=== PATIENT | female | born 1955 | race Caucasian/White ===

== ENCOUNTER → 2018-08-10 10:00 | Outpatient (CLI) | payer OTHER, SELFPAY | PROVIDERS: PCP Family Medicine | DX: Z23 Encounter for immunization (principal) | CPT/HCPCS: 90471; 90686 ==

== ENCOUNTER → 2018-12-19 18:59 | Outpatient (CLI) | payer OTHER, SELFPAY | PROVIDERS: PCP Family Medicine; Visit Provider Physician Assistant | DX: J02.9 Acute pharyngitis, unspecified (principal) | CPT/HCPCS: 87070 ==

== ENCOUNTER 2019-03-07 20:03 | Emergency (ER) | payer OTHER, SELFPAY ==
[2019-03-07] VITALS (11 sets, daily range): BP systolic 97–161; BP diastolic 46–90; PULSE 67–84; RESP 12–18; TEMP 36.8–37.1; O2SAT 96–100
--- NOTE | 2019-03-07 20:15 | DI.RAD.S_ITS ---
PROCEDURE: XR CHEST 1V INDICATIONS: chest tight TECHNIQUE: One view of the chest was acquired. COMPARISON: None. FINDINGS: Surgical changes and devices: None. Lungs and pleura: Lungs are clear. No pleural effusions or pneumothorax. Mediastinum: Mediastinal contours appear normal. Heart size is normal. Bones and chest wall: No suspicious bony lesions. Overlying soft tissues appear unremarkable. IMPRESSION: Normal for age, source of current chest tightness symptoms is not seen. Dictated by: Hua Wu M.D. on 03/07/2019 at 20:28 Approved by: Hua Wu M.D. on 03/07/2019 at 20:29
--- NOTE | 2019-03-07 20:17 | ED.ARRPALP ---
HPI - Arrhythmia/Palpitations <Shanice Og PA-C - Last Filed: 03/07/19 22:14> General Chief Complaint: Arrhythmia/Palpitations Stated Complaint: ABNORMAL EKG Time Seen by Provider: 03/07/19 20:12 Source: patient Mode of arrival: ambulatory Limitations: no limitations History of Present Illness HPI narrative: This 63-year-old female is sent to ED from the walk-in clinic today due to concern for EKG changes. She states that she has been sick for a week with ?flu? symptoms including generalized body aches. She states that she has had some chest congestion and mild cough and had some chills and sweats at home as well (no temperature is taken). She states that she also had nausea and vomiting with this for the 1st few days. She does not have any nausea or abdominal pain today. She states that she has also had palpitations twice during this last week that lasted for up to an hour, this felt like fast heart rate to her. She did not notice any irregular heartbeat. She states that she has also been more tired in general and short of breath with exertion, i.e. just watering her plants today notice this. She has not been short of breath at rest, no difficulty lying flat. She states that she has not noted any new pain or swelling in her extremities. she has not had any pain in her chest. She states she noticed some pain and soreness in her neck on the left side that she thinks is due to a swollen gland. That is more tender to the touch. She states that she went to the walk-in clinic to request a note to return to work and also to see if there was anything that could make her feel better since she still does not feel well. She denies any other new symptoms on systems review, states she has some ongoing lightheadedness that is unchanged. She states that she has chronic wheeze that is also unchanged, has never needed treatment or inhaler for this. She states she was previously treated for hypertension but lost weight and has not needed medications. She does have diabetes and neuropathy. No history of heart disease or blood clots Related Data Home Medications Medication Instructions Recorded Confirmed [CALCIUM/MAG/ZINC] PO QDAY #0 10/19/17 03/07/19 ascorbic acid (vitamin C) PO QDAY #0 10/19/17 03/07/19 cholecalciferol (vitamin D3) PO QDAY #0 10/19/17 03/07/19 [Vitamin D3] vitamin E [Aquasol E (d-alpha PO QDAY #0 10/19/17 03/07/19 tocopherol)] [probiotics] #0 12/11/17 03/07/19 biotin 5 mg capsule 5 mg PO DAILY 03/07/19 03/07/19 Previous Rx's Medication Instructions Recorded Glucose: Home Monitoring Kit kit NA QDAY #1 01/02/18 Test Strips - Freestyle str NA QDAY #90 01/02/18 Allergies Allergy/AdvReac Type Severity Reaction Status Date / Time Penicillins [PENICILLINS] Allergy Unknown Verified 03/07/19 20:11 Sulfa (Sulfonamide Allergy Unknown Verified 03/07/19 20:11 Antibiotics) [SULFA (SULFONAMIDE ANTIBIOTICS)] <Xenia Weems DO - Last Filed: 03/08/19 02:14> History of Present Illness HPI narrative: The patient is 63-year-old female with history of noncompliant diabetes and hypertension presenting from the walk-in clinic for EKG changes. She has had a increased shortness of breath with exertion worse over the last day. She has no chest pain or heart palpitations found. She has had flu like symptoms as for the last few days. She denies any orthopnea. She is supposed to be taking metformin for her diabetes but she states she has not been taking that or her blood pressure medication. Review of Systems <Shanice Og PA-C - Last Filed: 03/07/19 22:14> Review of Systems ROS Unobtainable: All systems reviewed & are unremarkable except as noted in HPI and below <Xenia Weems DO - Last Filed: 03/08/19 02:14> Review of Systems ROS Unobtainable: All systems reviewed & are unremarkable except as noted in HPI and below Constitutional Reports body ache(s), Denies chills, Denies fever(s), Denies lethargy and Denies weakness Eyes Denies change in vision, Denies eye discharge, Denies irritation and Denies loss of vision ENT Ears, Nose, Mouth, and Throat: Denies change in voice, Denies neck pain and Denies sore throat Cardiovascular Denies chest pain, Denies lightheadedness, Denies radiating jaw, neck or arm pain, Reports palpitations (twice this week), Reports dyspnea on exertion and Denies orthopnea Respiratory Reports as per HPI, Reports chest congestion, Reports cough and Reports dyspnea on exertion Gastrointestinal Gastrointestinal: Denies abdominal pain, Denies change in bowel habits, Denies diarrhea, Denies nausea and Denies vomiting Genitourinary Denies hematuria, Denies flank pain, Denies urinary incontinence and Denies urinary urgency Musculoskeletal Denies neck pain Integumentary/Breasts Denies pruritus, Denies erythema, Denies rash and Denies wounds Neurologic Denies loss of vision and Denies weakness Endocrine Reports palpitations (twice this week) PFSH <Shanice Og PA-C - Last Filed: 03/07/19 22:14> Medical History CTS (carpal tunnel syndrome) (Chronic 1997) Depression (Chronic 1977) Diabetes mellitus (Chronic 2009) HPV (human papilloma virus) infection (Chronic 2016) IBS (irritable bowel syndrome) (Chronic 1977) Acne (Resolved 1969) Chicken pox (Resolved 1961) Colon polyps (Resolved 2014) Foot pain (Resolved 1955) Fractures (Resolved 1973) Hemorrhoids (Resolved 1974) History of recurrent ear infection (Resolved 1967) Measles (Resolved 1962) Mumps (Resolved 1959) Recurrent sinusitis (Resolved 1959) Tinnitus (Resolved 1969) Surgical History Anesthesia (Resolved) Status post colonoscopy (Resolved) Family History (Updated 05/08/18 @ 17:40 by Denisse Mccall) Mother Cancer Family/Other Stomach cancer Family/Other Breast cancer Social History Smoking Status: Former smoker Family History (Updated 05/08/18 @ 17:40 by Denisse Mccall) Mother Cancer Family/Other Stomach cancer Family/Other Breast cancer Social History Smoking Status: Former smoker Comment: Quit tobacco approximately 1998 Exam <Shanice Og PA-C - Last Filed: 03/07/19 22:14> Narrative Exam Narrative: GENERAL APPEARANCE: Patient sitting comfortably, in no distress. HEENT: JYOTI, EOMI, normal oropharynx NECK/THYROID: Neck supple, no JVD. Few cervical nodes, 1 tender node on the left approximately 1 cm LUNGS: Clear to auscultation bilaterally. HEART: Regular rate and rhythm without murmur, normal S1, S2, no S3 or S4. ABDOMEN: Soft, NT, ND, + BS x 4 quadrants EXTREMITIES: No edema. No calf tenderness NEUROLOGIC: Alert and oriented, normal speech, gait and coordination. Initial Vital Signs Initial Vital Signs: Vital Signs Temperature 98.8 F 03/07/19 20:05 Pulse Rate 70 03/07/19 20:05 Respiratory Rate 12 03/07/19 20:05 Blood Pressure 161/90 H 03/07/19 20:05 Pulse Oximetry 100 03/07/19 20:05 <Xenia Weems DO - Last Filed: 03/08/19 02:14> Initial Vital Signs Initial Vital Signs: Vital Signs Temperature 98.8 F 03/07/19 20:05 Pulse Rate 70 03/07/19 20:05 Respiratory Rate 12 03/07/19 20:05 Blood Pressure 161/90 H 03/07/19 20:05 Pulse Oximetry 100 03/07/19 20:05 Course <Shanice Og PA-C - Last Filed: 03/07/19 22:14> Additional Information: The patient initially stated that she had not had any new symptoms today but had noted exertional dyspnea in light of her flu-like symptoms over the past sent from the walk-in clinic due to EKG changes. Her troponin was positive. She noted some brief left-sided mild chest discomfort that was relieved with a dose of nitroglycerin. She was given aspirin, started on heparin. She has not been hypoxic. Dr. Weems has seen and evaluated patient as well. Awaiting transfer to cardiac care facility (waiting for insurance contact to return call). 2 hour repeat troponin ordered. Dr. Weems will continue management and transfer Orders Ordered: ED Orders 03/07/19 20:15 XR chest 1V Stat EKG-12 Lead Stat 03/07/19 20:30 B Type Natriuretic Peptide Stat Complete Blood Count AUTO DIFF Stat Comprehensive Metabolic Panel Stat Influenza A and B by PCR Rapid Stat Lipase Stat Partial Thromboplastin Time Stat Troponin & CK Cardiac Panel Stat 03/07/19 22:25 Troponin I Stat 03/07/19 22:49 EKG-12 Lead Stat Discontinued Medications Aspirin (Aspirin Chew) 324 mg PO NOW ONE Stop: 03/07/19 20:16 Last Admin: 03/07/19 20:18 Dose: 324 mg Heparin Sodium (Porcine) (Heparin) 5,000 unit IV NOW ONE Stop: 03/07/19 21:35 Last Admin: 03/07/19 21:42 Dose: 5,000 unit Heparin Sodium/Dextrose (Heparin Drip) 25,000 unit in 500 mls @ 20 mls/hr IV CONT WEN; Protocol Last Titration: 03/08/19 00:34 Dose: 1,000 units/hr, 20 mls/hr Admin: 03/07/19 21:45 Dose: 1,000 units/hr, 20 mls/hr Nitroglycerin (Nitroglycerin) 50 mg in 250 mls @ 1.5 mls/hr IV TITRATE WEN; Protocol Last Titration: 03/08/19 00:35 Dose: 5 mcg/min, 1.5 mls/hr Admin: 03/07/19 23:21 Dose: 5 mcg/min, 1.5 mls/hr Nitroglycerin (Nitrostat) 0.4 mg SL NOW ONE Stop: 03/07/19 21:35 Last Admin: 03/07/19 21:39 Dose: 0.4 mg Vital Signs - 8 hr 03/07/19 20:05 03/07/19 21:11 03/07/19 21:25 Temperature 98.8 F Pulse Rate 70 74 73 Respiratory Rate 12 18 17 Blood Pressure 161/90 H Blood Pressure [Left Arm] 156/86 H 134/83 Pulse Oximetry 100 98 96 03/07/19 21:35 03/07/19 21:40 03/07/19 21:45 Temperature Pulse Rate 74 84 80 Respiratory Rate 12 18 16 Blood Pressure Blood Pressure [Left Arm] 134/83 138/79 125/84 Pulse Oximetry 97 96 97 03/07/19 22:06 03/07/19 22:24 03/07/19 22:49 Temperature Pulse Rate 67 71 69 Respiratory Rate 15 18 18 Blood Pressure Blood Pressure [Left Arm] 131/75 121/83 97/46 L Pulse Oximetry 97 98 98 03/07/19 22:53 03/07/19 23:42 03/08/19 00:35 Temperature 98.2 F 98 F Pulse Rate 76 72 77 Respiratory Rate 18 16 18 Blood Pressure 117/71 Blood Pressure [Left Arm] 134/72 131/76 Pulse Oximetry 98 96 98 <Xenia Weems DO - Last Filed: 03/08/19 02:14> Orders Ordered: ED Orders 03/07/19 20:15 XR chest 1V Stat EKG-12 Lead Stat 03/07/19 20:30 B Type Natriuretic Peptide Stat Complete Blood Count AUTO DIFF Stat Comprehensive Metabolic Panel Stat Influenza A and B by PCR Rapid Stat Lipase Stat Partial Thromboplastin Time Stat Troponin & CK Cardiac Panel Stat 03/07/19 22:25 Troponin I Stat 03/07/19 22:49 EKG-12 Lead Stat Discontinued Medications Aspirin (Aspirin Chew) 324 mg PO NOW ONE Stop: 03/07/19 20:16 Last Admin: 03/07/19 20:18 Dose: 324 mg Heparin Sodium (Porcine) (Heparin) 5,000 unit IV NOW ONE Stop: 03/07/19 21:35 Last Admin: 03/07/19 21:42 Dose: 5,000 unit Heparin Sodium/Dextrose (Heparin Drip) 25,000 unit in 500 mls @ 20 mls/hr IV CONT WEN; Protocol Last Titration: 03/08/19 00:34 Dose: 1,000 units/hr, 20 mls/hr Admin: 03/07/19 21:45 Dose: 1,000 units/hr, 20 mls/hr Nitroglycerin (Nitroglycerin) 50 mg in 250 mls @ 1.5 mls/hr IV TITRATE WEN; Protocol Last Titration: 03/08/19 00:35 Dose: 5 mcg/min, 1.5 mls/hr Admin: 03/07/19 23:21 Dose: 5 mcg/min, 1.5 mls/hr Nitroglycerin (Nitrostat) 0.4 mg SL NOW ONE Stop: 03/07/19 21:35 Last Admin: 03/07/19 21:39 Dose: 0.4 mg Vital Signs - 8 hr 03/07/19 20:05 03/07/19 21:11 03/07/19 21:25 Temperature 98.8 F Pulse Rate 70 74 73 Respiratory Rate 12 18 17 Blood Pressure 161/90 H Blood Pressure [Left Arm] 156/86 H 134/83 Pulse Oximetry 100 98 96 03/07/19 21:35 03/07/19 21:40 03/07/19 21:45 Temperature Pulse Rate 74 84 80 Respiratory Rate 12 18 16 Blood Pressure Blood Pressure [Left Arm] 134/83 138/79 125/84 Pulse Oximetry 97 96 97 03/07/19 22:06 03/07/19 22:24 03/07/19 22:49 Temperature Pulse Rate 67 71 69 Respiratory Rate 15 18 18 Blood Pressure Blood Pressure [Left Arm] 131/75 121/83 97/46 L Pulse Oximetry 97 98 98 03/07/19 22:53 03/07/19 23:42 03/08/19 00:35 Temperature 98.2 F 98 F Pulse Rate 76 72 77 Respiratory Rate 18 16 18 Blood Pressure 117/71 Blood Pressure [Left Arm] 134/72 131/76 Pulse Oximetry 98 96 98 MDM - Arrhythmia/Palpitations <Shanice Og PA-C - Last Filed: 03/07/19 22:14> Lab Data Attestation: I reviewed the patient's lab results. Result diagrams: 03/07/19 20:30 03/07/19 20:30 Lab Results 03/07/19 03/07/19 03/07/19 Range/Units 20:30 20:30 20:30 WBC 6.6 (4.5-11.0) X10^3/uL RBC 4.90 (4.0-5.2) X10^6/uL Hgb 15.7 (12.0-16.0) g/dL Hct 45.2 (36-46) % MCV 92.1 (80-100) fL MCH 31.9 (26-34) PG MCHC 34.7 (30-36) % RDW 13.1 (11.6-14.8) % Plt Count 293 (150-400) X10^3/uL Neut % (Auto) 60.0 (50-75) % Lymph % (Auto) 30.5 (25-40) % [place] % (Auto) 8.3 (3-14) % Eos % (Auto) 0.3 L (2-4) % Baso % (Auto) 0.9 (0-2) % Neut # (Auto) 4000 (9789-8730) /uL Lymph # (Auto) 2000 (5291-3053) /uL [place] # (Auto) 500 (0-900) /uL Eos # (Auto) 0 (0-450) /uL Baso # (Auto) 100 (0-100) /uL APTT (26.4-36.2) SECONDS Sodium 136 L (137-145) mmol/L Potassium 4.1 (3.4-5.1) mmol/L Chloride 96 L (98-107) mmol/L Carbon Dioxide 26 (22-32) mmol/L BUN 14 (7-17) mg/dL Creatinine 0.50 L (0.52-1.04) mg/dL Estimated GFR > 60.0 (>60) mL/min BUN/Creatinine Ratio 28.0 H (6-22) Glucose 296 H (80-110) mg/dL Calcium 9.1 (8.4-10.2) mg/dL Total Bilirubin 1.6 H (0.2-1.3) mg/dL AST 33 (14-36) IU/L ALT 34 (9-52) IU/L Alkaline Phosphatase 142 H (38-126) U/L Total Creatine Kinase 128 (30-135) U/L CK-MB (CK-2) 1.00 (<2.37) ng/mL CK-MB (CK-2) Rel Index 0.8 L (1.5-5.0) % Troponin I 0.678 H* (0.01-0.034) ng/mL B-Natriuretic Peptide 285 H (<100) Total Protein 7.2 (6.3-8.2) g/dL Albumin 4.0 (3.5-5.0) g/dL Globulin 3.2 (1.7-4.1) g/dL Albumin/Globulin Ratio 1.3 (1.0-2.8) Lipase 62 (23-300) U/L Influenza A & B (PCR) Negative (Negative) 03/07/19 03/07/19 Range/Units 20:30 22:25 WBC (4.5-11.0) X10^3/uL RBC (4.0-5.2) X10^6/uL Hgb (12.0-16.0) g/dL Hct (36-46) % MCV (80-100) fL MCH (26-34) PG MCHC (30-36) % RDW (11.6-14.8) % Plt Count (150-400) X10^3/uL Neut % (Auto) (50-75) % Lymph % (Auto) (25-40) % [place] % (Auto) (3-14) % Eos % (Auto) (2-4) % Baso % (Auto) (0-2) % Neut # (Auto) (1591-3141) /uL Lymph # (Auto) (6036-0099) /uL [place] # (Auto) (0-900) /uL Eos # (Auto) (0-450) /uL Baso # (Auto) (0-100) /uL APTT 25 L (26.4-36.2) SECONDS Sodium (137-145) mmol/L Potassium (3.4-5.1) mmol/L Chloride (98-107) mmol/L Carbon Dioxide (22-32) mmol/L BUN (7-17) mg/dL Creatinine (0.52-1.04) mg/dL Estimated GFR (>60) mL/min BUN/Creatinine Ratio (6-22) Glucose (80-110) mg/dL Calcium (8.4-10.2) mg/dL Total Bilirubin (0.2-1.3) mg/dL AST (14-36) IU/L ALT (9-52) IU/L Alkaline Phosphatase (38-126) U/L Total Creatine Kinase (30-135) U/L CK-MB (CK-2) (<2.37) ng/mL CK-MB (CK-2) Rel Index (1.5-5.0) % Troponin I 1.020 H* (0.01-0.034) ng/mL B-Natriuretic Peptide (<100) Total Protein (6.3-8.2) g/dL Albumin (3.5-5.0) g/dL Globulin (1.7-4.1) g/dL Albumin/Globulin Ratio (1.0-2.8) Lipase (23-300) U/L Influenza A & B (PCR) (Negative) Imaging Data Chest x-ray: Radiologist's impression: [address] [address] XRay Report Signed Patient: Suma Campos [facility]#: [id number] : 3Acct:[id number] Age/Sex: 63 / FDate of Service: 04/12/19 Loc: ED Accession Number: [id number] Procedure: XR chest 1V Ordering Provider: Shanice Og P.A-C PROCEDURE: XR CHEST 1V INDICATIONS: chest tight TECHNIQUE: One view of the chest was acquired. COMPARISON: None. FINDINGS: Surgical changes and devices: None. Lungs and pleura: Lungs are clear. No pleural effusions or pneumothorax. Mediastinum: Mediastinal contours appear normal. Heart size is normal. Bones and chest wall: No suspicious bony lesions. Overlying soft tissues appear unremarkable. IMPRESSION: Normal for age, source of current chest tightness symptoms is not seen. Dictated by: Hua Wu M.D. on 03/07/2019 at 20:28 Approved by: Hua Wu M.D. on 03/07/2019 at 20:29 ECG Data Attestation: I personally reviewed and interpreted this ECG as follows: (On multiple EKGs normal sinus rhythm with rate 63-74 ST changes in inferior leads, depression in V2/3 (no changes when patient symptomatic)) Prior ECG tracings: available for review <Xenia Weems DO - Last Filed: 03/08/19 02:14> Lab Data Attestation: I reviewed the patient's lab results. Lab Results 03/07/19 03/07/19 03/07/19 Range/Units 20:30 20:30 20:30 WBC 6.6 (4.5-11.0) X10^3/uL RBC 4.90 (4.0-5.2) X10^6/uL Hgb 15.7 (12.0-16.0) g/dL Hct 45.2 (36-46) % MCV 92.1 (80-100) fL MCH 31.9 (26-34) PG MCHC 34.7 (30-36) % RDW 13.1 (11.6-14.8) % Plt Count 293 (150-400) X10^3/uL Neut % (Auto) 60.0 (50-75) % Lymph % (Auto) 30.5 (25-40) % [place] % (Auto) 8.3 (3-14) % Eos % (Auto) 0.3 L (2-4) % Baso % (Auto) 0.9 (0-2) % Neut # (Auto) 4000 (5896-7750) /uL Lymph # (Auto) 2000 (6009-7599) /uL [place] # (Auto) 500 (0-900) /uL Eos # (Auto) 0 (0-450) /uL Baso # (Auto) 100 (0-100) /uL APTT (26.4-36.2) SECONDS Sodium 136 L (137-145) mmol/L Potassium 4.1 (3.4-5.1) mmol/L Chloride 96 L (98-107) mmol/L Carbon Dioxide 26 (22-32) mmol/L BUN 14 (7-17) mg/dL Creatinine 0.50 L (0.52-1.04) mg/dL Estimated GFR > 60.0 (>60) mL/min BUN/Creatinine Ratio 28.0 H (6-22) Glucose 296 H (80-110) mg/dL Calcium 9.1 (8.4-10.2) mg/dL Total Bilirubin 1.6 H (0.2-1.3) mg/dL AST 33 (14-36) IU/L ALT 34 (9-52) IU/L Alkaline Phosphatase 142 H (38-126) U/L Total Creatine Kinase 128 (30-135) U/L CK-MB (CK-2) 1.00 (<2.37) ng/mL CK-MB (CK-2) Rel Index 0.8 L (1.5-5.0) % Troponin I 0.678 H* (0.01-0.034) ng/mL B-Natriuretic Peptide 285 H (<100) Total Protein 7.2 (6.3-8.2) g/dL Albumin 4.0 (3.5-5.0) g/dL Globulin 3.2 (1.7-4.1) g/dL Albumin/Globulin Ratio 1.3 (1.0-2.8) Lipase 62 (23-300) U/L Influenza A & B (PCR) Negative (Negative) 03/07/19 03/07/19 Range/Units 20:30 22:25 WBC (4.5-11.0) X10^3/uL RBC (4.0-5.2) X10^6/uL Hgb (12.0-16.0) g/dL Hct (36-46) % MCV (80-100) fL MCH (26-34) PG MCHC (30-36) % RDW (11.6-14.8) % Plt Count (150-400) X10^3/uL Neut % (Auto) (50-75) % Lymph % (Auto) (25-40) % [place] % (Auto) (3-14) % Eos % (Auto) (2-4) % Baso % (Auto) (0-2) % Neut # (Auto) (7149-6407) /uL Lymph # (Auto) (8246-3641) /uL [place] # (Auto) (0-900) /uL Eos # (Auto) (0-450) /uL Baso # (Auto) (0-100) /uL APTT 25 L (26.4-36.2) SECONDS Sodium (137-145) mmol/L Potassium (3.4-5.1) mmol/L Chloride (98-107) mmol/L Carbon Dioxide (22-32) mmol/L BUN (7-17) mg/dL Creatinine (0.52-1.04) mg/dL Estimated GFR (>60) mL/min BUN/Creatinine Ratio (6-22) Glucose (80-110) mg/dL Calcium (8.4-10.2) mg/dL Total Bilirubin (0.2-1.3) mg/dL AST (14-36) IU/L ALT (9-52) IU/L Alkaline Phosphatase (38-126) U/L Total Creatine Kinase (30-135) U/L CK-MB (CK-2) (<2.37) ng/mL CK-MB (CK-2) Rel Index (1.5-5.0) % Troponin I 1.020 H* (0.01-0.034) ng/mL B-Natriuretic Peptide (<100) Total Protein (6.3-8.2) g/dL Albumin (3.5-5.0) g/dL Globulin (1.7-4.1) g/dL Albumin/Globulin Ratio (1.0-2.8) Lipase (23-300) U/L Influenza A & B (PCR) (Negative) Imaging Data Chest x-ray: Radiologist's impression: [address] [address] XRay Report Signed Patient: Suma Campos MMR#: [id number] : 3Acct:[id number] Age/Sex: 63 / FDate of Service: 03/07/19 Loc: ED Accession Number: [id number] Procedure: XR chest 1V Ordering Provider: Shanice Og P.A-C PROCEDURE: XR CHEST 1V INDICATIONS: chest tight TECHNIQUE: One view of the chest was acquired. COMPARISON: None. FINDINGS: Surgical changes and devices: None. Lungs and pleura: Lungs are clear. No pleural effusions or pneumothorax. Mediastinum: Mediastinal contours appear normal. Heart size is normal. Bones and chest wall: No suspicious bony lesions. Overlying soft tissues appear unremarkable. IMPRESSION: Normal for age, source of current chest tightness symptoms is not seen. Dictated by: Hua Wu M.D. on 03/07/2019 at 20:28 ECG Data Attestation: I personally reviewed and interpreted this ECG as follows: Prior ECG tracings: available for review Interpretation: EKG 1. From walk-in clinic sinus rhythm rate 67. Interval 168 QRS 89 QTC 400. She does appear to have some peaked T-waves V2 and V3. Questionable ST elevation in lead [address] depressions appreciated Q-wave noted in lead 3 which is similar to previous EKG EKG 2. Sinus rhythm rate 63 T-waves in V2 and V3 are improved slight ST depression V2 and the [address] elevation in lead 2 only Q-wave present in lead 3 unchanged EKG 3. Sinus rhythm are fact noted rate 69 similar to previous EKGs poor tracing of lead 2 EKG 4. Sinus rhythm rate 74 similar previous EKGs however the ST segment in lead 2 appears improved no significant ST depressions appreciated no T-wave inversions EKG 5. Sinus rhythm rate [address] changes similar to previous MDM Narrative Medical decision making narrative: I have worked closely with Alysa with this case and the patient. Patient has had intermittent left-sided chest pain which she says resolves with burping. She has been given nitroglycerin which she says also helps. Patient's repeat troponin is significantly more elevated after just 2 hours. She continues to have intermittent chest pain. Repeat EKG 5. Does not show any changes. She is placed on nitroglycerin drip. I have spoken with [facility] to arrange for her to be transferred to [facility]. , is the accepting physician at [facility]. Patient overall is hemodynamically stable. blood pressure did drop initially with the 1st nitroglycerin but quickly improved. Discharge Plan Departure Patient Disposition: [facility] Clinical Impression: Non-ST elevated myocardial infarction (non-STEMI) Discharge Date/Time: 03/08/19 00:30 Interventions: ED Discharge Assessment Last Done: 03/08/19 00:35 Prescriptions: No Action biotin 5 mg capsule 5 mg PO DAILY RF: 0 vitamin E [Aquasol E (d-alpha tocopherol)] 50 unit/mL Drops PO QDAY Qty: 0 RF: 0 cholecalciferol (vitamin D3) [Vitamin D3] 2,000 unit Tablet PO QDAY Qty: 0 RF: 0 ascorbic acid (vitamin C) 500 mg Tablet PO QDAY Qty: 0 RF: 0 [CALCIUM/MAG/ZINC] PO QDAY Qty: 0 RF: 0 [probiotics] Qty: 0 RF: 0 Test Strips - Freestyle NA QDAY Qty: 90 RF: 3 Glucose: Home Monitoring Kit NA QDAY Qty: 1 RF: 0 Referrals: Klarissa Webb MD [Primary Care Provider] - <Xenia Weems DO - Last Filed: 03/08/19 02:14> Cosign ED Attending Cosgiselaature Attestation: I was immediately available in the department for consultation. Documentation has been reviewed. I agree with assessment and plan.
[2019-03-07] MEDS: ASPIRIN 81 MG TAB 324 MG PO (20:18)
--- NOTE | 2019-03-07 20:34 | ED_ITS ---
HPI - Arrhythmia/Palpitations <Shanice Og PA-C - Last Filed: 03/07/19 22:14> General Chief Complaint: Arrhythmia/Palpitations Stated Complaint: ABNORMAL EKG Time Seen by Provider: 03/07/19 20:12 Source: patient Mode of arrival: ambulatory Limitations: no limitations History of Present Illness HPI narrative: This 63-year-old female is sent to ED from the walk-in clinic today due to concern for EKG changes. She states that she has been sick for a week with ?flu? symptoms including generalized body aches. She states that she has had some chest congestion and mild cough and had some chills and sweats at home as well (no temperature is taken). She states that she also had nausea and vomiting with this for the 1st few days. She does not have any nausea or abdominal pain today. She states that she has also had palpitations twice during this last week that lasted for up to an hour, this felt like fast heart rate to her. She did not notice any irregular heartbeat. She states that she has also been more tired in general and short of breath with exertion, i.e. just watering her plants today notice this. She has not been short of breath at rest, no difficulty lying flat. She states that she has not noted any new pain or swelling in her extremities. she has not had any pain in her chest. She states she noticed some pain and soreness in her neck on the left side that she thinks is due to a swollen gland. That is more tender to the touch. She states that she went to the walk-in clinic to request a note to return to work and also to see if there was anything that could make her feel better since she still does not feel well. She denies any other new symptoms on systems review, states she has some ongoing lightheadedness that is unchanged. She states that she has chronic wheeze that is also unchanged, has never needed treatment or inhaler for this. She states she was previously treated for hypertension but lost weight and has not needed medications. She does have diabetes and neuropathy. No history of heart disease or blood clots Related Data Home Medications Medication Instructions Recorded Confirmed [CALCIUM/MAG/ZINC] PO QDAY #0 10/19/17 03/07/19 ascorbic acid (vitamin C) PO QDAY #0 10/19/17 03/07/19 cholecalciferol (vitamin D3) PO QDAY #0 10/19/17 03/07/19 [Vitamin D3] vitamin E [Aquasol E (d-alpha PO QDAY #0 10/19/17 03/07/19 tocopherol)] [probiotics] #0 12/11/17 03/07/19 biotin 5 mg capsule 5 mg PO DAILY 03/07/19 03/07/19 Previous Rx's Medication Instructions Recorded Glucose: Home Monitoring Kit kit NA QDAY #1 01/02/18 Test Strips - Freestyle str NA QDAY #90 01/02/18 Allergies Allergy/AdvReac Type Severity Reaction Status Date / Time Penicillins [PENICILLINS] Allergy Unknown Verified 03/07/19 20:11 Sulfa (Sulfonamide Allergy Unknown Verified 03/07/19 20:11 Antibiotics) [SULFA (SULFONAMIDE ANTIBIOTICS)] <Xenia Weems DO - Last Filed: 03/08/19 02:14> History of Present Illness HPI narrative: The patient is 63-year-old female with history of noncompliant diabetes and hypertension presenting from the walk-in clinic for EKG changes. She has had a increased shortness of breath with exertion worse over the last day. She has no chest pain or heart palpitations found. She has had flu like symptoms as for the last few days. She denies any orthopnea. She is supposed to be taking metformin for her diabetes but she states she has not been taking that or her blood pressure medication. Review of Systems <Shanice Og PA-C - Last Filed: 03/07/19 22:14> Review of Systems ROS Unobtainable: All systems reviewed & are unremarkable except as noted in HPI and below <Xenia Weems DO - Last Filed: 03/08/19 02:14> Review of Systems ROS Unobtainable: All systems reviewed & are unremarkable except as noted in HPI and below Constitutional Reports body ache(s), Denies chills, Denies fever(s), Denies lethargy and Denies weakness Eyes Denies change in vision, Denies eye discharge, Denies irritation and Denies loss of vision ENT Ears, Nose, Mouth, and Throat: Denies change in voice, Denies neck pain and Denies sore throat Cardiovascular Denies chest pain, Denies lightheadedness, Denies radiating jaw, neck or arm pain, Reports palpitations (twice this week), Reports dyspnea on exertion and Denies orthopnea Respiratory Reports as per HPI, Reports chest congestion, Reports cough and Reports dyspnea on exertion Gastrointestinal Gastrointestinal: Denies abdominal pain, Denies change in bowel habits, Denies diarrhea, Denies nausea and Denies vomiting Genitourinary Denies hematuria, Denies flank pain, Denies urinary incontinence and Denies urinary urgency Musculoskeletal Denies neck pain Integumentary/Breasts Denies pruritus, Denies erythema, Denies rash and Denies wounds Neurologic Denies loss of vision and Denies weakness Endocrine Reports palpitations (twice this week) PFSH <Shanice Og PA-C - Last Filed: 03/07/19 22:14> Medical History CTS (carpal tunnel syndrome) (Chronic 1997) Depression (Chronic 1977) Diabetes mellitus (Chronic 2009) HPV (human papilloma virus) infection (Chronic 2016) IBS (irritable bowel syndrome) (Chronic 1977) Acne (Resolved 1969) Chicken pox (Resolved 1961) Colon polyps (Resolved 2014) Foot pain (Resolved 1955) Fractures (Resolved 1973) Hemorrhoids (Resolved 1974) History of recurrent ear infection (Resolved 1967) Measles (Resolved 1962) Mumps (Resolved 1959) Recurrent sinusitis (Resolved 1959) Tinnitus (Resolved 1969) Surgical History Anesthesia (Resolved) Status post colonoscopy (Resolved) Family History (Updated 05/08/18 @ 17:40 by Denisse Mccall) Mother Cancer Family/Other Stomach cancer Family/Other Breast cancer Social History Smoking Status: Former smoker Family History (Updated 05/08/18 @ 17:40 by Denisse Mccall) Mother Cancer Family/Other Stomach cancer Family/Other Breast cancer Social History Smoking Status: Former smoker Comment: Quit tobacco approximately 1998 Exam <Shanice Og PA-C - Last Filed: 03/07/19 22:14> Narrative Exam Narrative: GENERAL APPEARANCE: Patient sitting comfortably, in no distress. HEENT: JYOTI, EOMI, normal oropharynx NECK/THYROID: Neck supple, no JVD. Few cervical nodes, 1 tender node on the left approximately 1 cm LUNGS: Clear to auscultation bilaterally. HEART: Regular rate and rhythm without murmur, normal S1, S2, no S3 or S4. ABDOMEN: Soft, NT, ND, + BS x 4 quadrants EXTREMITIES: No edema. No calf tenderness NEUROLOGIC: Alert and oriented, normal speech, gait and coordination. Initial Vital Signs Initial Vital Signs: Vital Signs Temperature 98.8 F 03/07/19 20:05 Pulse Rate 70 03/07/19 20:05 Respiratory Rate 12 03/07/19 20:05 Blood Pressure 161/90 H 03/07/19 20:05 Pulse Oximetry 100 03/07/19 20:05 <Xenia Weems DO - Last Filed: 03/08/19 02:14> Initial Vital Signs Initial Vital Signs: Vital Signs Temperature 98.8 F 03/07/19 20:05 Pulse Rate 70 03/07/19 20:05 Respiratory Rate 12 03/07/19 20:05 Blood Pressure 161/90 H 03/07/19 20:05 Pulse Oximetry 100 03/07/19 20:05 Course <Shanice Og PA-C - Last Filed: 03/07/19 22:14> Additional Information: The patient initially stated that she had not had any new symptoms today but had noted exertional dyspnea in light of her flu-like symptoms over the past sent from the walk-in clinic due to EKG changes. Her troponin was positive. She noted some brief left-sided mild chest discomfort that was relieved with a dose of nitroglycerin. She was given aspirin, started on heparin. She has not been hypoxic. Dr. Weems has seen and evaluated patient as well. Awaiting transfer to cardiac care facility (waiting for insurance contact to return call). 2 hour repeat troponin ordered. Dr. Weems will continue management and transfer Orders Ordered: ED Orders 03/07/19 20:15 XR chest 1V Stat EKG-12 Lead Stat 03/07/19 20:30 B Type Natriuretic Peptide Stat Complete Blood Count AUTO DIFF Stat Comprehensive Metabolic Panel Stat Influenza A and B by PCR Rapid Stat Lipase Stat Partial Thromboplastin Time Stat Troponin & CK Cardiac Panel Stat 03/07/19 22:25 Troponin I Stat 03/07/19 22:49 EKG-12 Lead Stat Discontinued Medications Aspirin (Aspirin Chew) 324 mg PO NOW ONE Stop: 03/07/19 20:16 Last Admin: 03/07/19 20:18 Dose: 324 mg Heparin Sodium (Porcine) (Heparin) 5,000 unit IV NOW ONE Stop: 03/07/19 21:35 Last Admin: 03/07/19 21:42 Dose: 5,000 unit Heparin Sodium/Dextrose (Heparin Drip) 25,000 unit in 500 mls @ 20 mls/hr IV CONT WEN; Protocol Last Titration: 03/08/19 00:34 Dose: 1,000 units/hr, 20 mls/hr Admin: 03/07/19 21:45 Dose: 1,000 units/hr, 20 mls/hr Nitroglycerin (Nitroglycerin) 50 mg in 250 mls @ 1.5 mls/hr IV TITRATE WEN; Protocol Last Titration: 03/08/19 00:35 Dose: 5 mcg/min, 1.5 mls/hr Admin: 03/07/19 23:21 Dose: 5 mcg/min, 1.5 mls/hr Nitroglycerin (Nitrostat) 0.4 mg SL NOW ONE Stop: 03/07/19 21:35 Last Admin: 03/07/19 21:39 Dose: 0.4 mg Vital Signs - 8 hr 03/07/19 20:05 03/07/19 21:11 03/07/19 21:25 Temperature 98.8 F Pulse Rate 70 74 73 Respiratory Rate 12 18 17 Blood Pressure 161/90 H Blood Pressure [Left Arm] 156/86 H 134/83 Pulse Oximetry 100 98 96 03/07/19 21:35 03/07/19 21:40 03/07/19 21:45 Temperature Pulse Rate 74 84 80 Respiratory Rate 12 18 16 Blood Pressure Blood Pressure [Left Arm] 134/83 138/79 125/84 Pulse Oximetry 97 96 97 03/07/19 22:06 03/07/19 22:24 03/07/19 22:49 Temperature Pulse Rate 67 71 69 Respiratory Rate 15 18 18 Blood Pressure Blood Pressure [Left Arm] 131/75 121/83 97/46 L Pulse Oximetry 97 98 98 03/07/19 22:53 03/07/19 23:42 03/08/19 00:35 Temperature 98.2 F 98 F Pulse Rate 76 72 77 Respiratory Rate 18 16 18 Blood Pressure 117/71 Blood Pressure [Left Arm] 134/72 131/76 Pulse Oximetry 98 96 98 <Xenia Weems DO - Last Filed: 03/08/19 02:14> Orders Ordered: ED Orders 03/07/19 20:15 XR chest 1V Stat EKG-12 Lead Stat 03/07/19 20:30 B Type Natriuretic Peptide Stat Complete Blood Count AUTO DIFF Stat Comprehensive Metabolic Panel Stat Influenza A and B by PCR Rapid Stat Lipase Stat Partial Thromboplastin Time Stat Troponin & CK Cardiac Panel Stat 03/07/19 22:25 Troponin I Stat 03/07/19 22:49 EKG-12 Lead Stat Discontinued Medications Aspirin (Aspirin Chew) 324 mg PO NOW ONE Stop: 03/07/19 20:16 Last Admin: 03/07/19 20:18 Dose: 324 mg Heparin Sodium (Porcine) (Heparin) 5,000 unit IV NOW ONE Stop: 03/07/19 21:35 Last Admin: 03/07/19 21:42 Dose: 5,000 unit Heparin Sodium/Dextrose (Heparin Drip) 25,000 unit in 500 mls @ 20 mls/hr IV CONT WEN; Protocol Last Titration: 03/08/19 00:34 Dose: 1,000 units/hr, 20 mls/hr Admin: 03/07/19 21:45 Dose: 1,000 units/hr, 20 mls/hr Nitroglycerin (Nitroglycerin) 50 mg in 250 mls @ 1.5 mls/hr IV TITRATE WEN; Protocol Last Titration: 03/08/19 00:35 Dose: 5 mcg/min, 1.5 mls/hr Admin: 03/07/19 23:21 Dose: 5 mcg/min, 1.5 mls/hr Nitroglycerin (Nitrostat) 0.4 mg SL NOW ONE Stop: 03/07/19 21:35 Last Admin: 03/07/19 21:39 Dose: 0.4 mg Vital Signs - 8 hr 03/07/19 20:05 03/07/19 21:11 03/07/19 21:25 Temperature 98.8 F Pulse Rate 70 74 73 Respiratory Rate 12 18 17 Blood Pressure 161/90 H Blood Pressure [Left Arm] 156/86 H 134/83 Pulse Oximetry 100 98 96 03/07/19 21:35 03/07/19 21:40 03/07/19 21:45 Temperature Pulse Rate 74 84 80 Respiratory Rate 12 18 16 Blood Pressure Blood Pressure [Left Arm] 134/83 138/79 125/84 Pulse Oximetry 97 96 97 03/07/19 22:06 03/07/19 22:24 03/07/19 22:49 Temperature Pulse Rate 67 71 69 Respiratory Rate 15 18 18 Blood Pressure Blood Pressure [Left Arm] 131/75 121/83 97/46 L Pulse Oximetry 97 98 98 03/07/19 22:53 03/07/19 23:42 03/08/19 00:35 Temperature 98.2 F 98 F Pulse Rate 76 72 77 Respiratory Rate 18 16 18 Blood Pressure 117/71 Blood Pressure [Left Arm] 134/72 131/76 Pulse Oximetry 98 96 98 MDM - Arrhythmia/Palpitations <Shanice Og PA-C - Last Filed: 03/07/19 22:14> Lab Data Attestation: I reviewed the patient's lab results. Result diagrams: 03/07/19 20:30 03/07/19 20:30 Lab Results 03/07/19 03/07/19 03/07/19 Range/Units 20:30 20:30 20:30 WBC 6.6 (4.5-11.0) X10^3/uL RBC 4.90 (4.0-5.2) X10^6/uL Hgb 15.7 (12.0-16.0) g/dL Hct 45.2 (36-46) % MCV 92.1 (80-100) fL MCH 31.9 (26-34) PG MCHC 34.7 (30-36) % RDW 13.1 (11.6-14.8) % Plt Count 293 (150-400) X10^3/uL Neut % (Auto) 60.0 (50-75) % Lymph % (Auto) 30.5 (25-40) % Canyon % (Auto) 8.3 (3-14) % Eos % (Auto) 0.3 L (2-4) % Baso % (Auto) 0.9 (0-2) % Neut # (Auto) 4000 (6416-3589) /uL Lymph # (Auto) 2000 (4568-1102) /uL Canyon # (Auto) 500 (0-900) /uL Eos # (Auto) 0 (0-450) /uL Baso # (Auto) 100 (0-100) /uL APTT (26.4-36.2) SECONDS Sodium 136 L (137-145) mmol/L Potassium 4.1 (3.4-5.1) mmol/L Chloride 96 L (98-107) mmol/L Carbon Dioxide 26 (22-32) mmol/L BUN 14 (7-17) mg/dL Creatinine 0.50 L (0.52-1.04) mg/dL Estimated GFR > 60.0 (>60) mL/min BUN/Creatinine Ratio 28.0 H (6-22) Glucose 296 H (80-110) mg/dL Calcium 9.1 (8.4-10.2) mg/dL Total Bilirubin 1.6 H (0.2-1.3) mg/dL AST 33 (14-36) IU/L ALT 34 (9-52) IU/L Alkaline Phosphatase 142 H (38-126) U/L Total Creatine Kinase 128 (30-135) U/L CK-MB (CK-2) 1.00 (<2.37) ng/mL CK-MB (CK-2) Rel Index 0.8 L (1.5-5.0) % Troponin I 0.678 H* (0.01-0.034) ng/mL B-Natriuretic Peptide 285 H (<100) Total Protein 7.2 (6.3-8.2) g/dL Albumin 4.0 (3.5-5.0) g/dL Globulin 3.2 (1.7-4.1) g/dL Albumin/Globulin Ratio 1.3 (1.0-2.8) Lipase 62 (23-300) U/L Influenza A & B (PCR) Negative (Negative) 03/07/19 03/07/19 Range/Units 20:30 22:25 WBC (4.5-11.0) X10^3/uL RBC (4.0-5.2) X10^6/uL Hgb (12.0-16.0) g/dL Hct (36-46) % MCV (80-100) fL MCH (26-34) PG MCHC (30-36) % RDW (11.6-14.8) % Plt Count (150-400) X10^3/uL Neut % (Auto) (50-75) % Lymph % (Auto) (25-40) % Canyon % (Auto) (3-14) % Eos % (Auto) (2-4) % Baso % (Auto) (0-2) % Neut # (Auto) (5816-1518) /uL Lymph # (Auto) (3992-2921) /uL Canyon # (Auto) (0-900) /uL Eos # (Auto) (0-450) /uL Baso # (Auto) (0-100) /uL APTT 25 L (26.4-36.2) SECONDS Sodium (137-145) mmol/L Potassium (3.4-5.1) mmol/L Chloride (98-107) mmol/L Carbon Dioxide (22-32) mmol/L BUN (7-17) mg/dL Creatinine (0.52-1.04) mg/dL Estimated GFR (>60) mL/min BUN/Creatinine Ratio (6-22) Glucose (80-110) mg/dL Calcium (8.4-10.2) mg/dL Total Bilirubin (0.2-1.3) mg/dL AST (14-36) IU/L ALT (9-52) IU/L Alkaline Phosphatase (38-126) U/L Total Creatine Kinase (30-135) U/L CK-MB (CK-2) (<2.37) ng/mL CK-MB (CK-2) Rel Index (1.5-5.0) % Troponin I 1.020 H* (0.01-0.034) ng/mL B-Natriuretic Peptide (<100) Total Protein (6.3-8.2) g/dL Albumin (3.5-5.0) g/dL Globulin (1.7-4.1) g/dL Albumin/Globulin Ratio (1.0-2.8) Lipase (23-300) U/L Influenza A & B (PCR) (Negative) Imaging Data Chest x-ray: Radiologist's impression: [address] [address] XRay Report Signed Patient: Suma Campos [facility]#: [id number] : 3Acct:[id number] Age/Sex: 63 / FDate of Service: 04/12/19 Loc: ED Accession Number: [id number] Procedure: XR chest 1V Ordering Provider: Shanice Og P.A-C PROCEDURE: XR CHEST 1V INDICATIONS: chest tight TECHNIQUE: One view of the chest was acquired. COMPARISON: None. FINDINGS: Surgical changes and devices: None. Lungs and pleura: Lungs are clear. No pleural effusions or pneumothorax. Mediastinum: Mediastinal contours appear normal. Heart size is normal. Bones and chest wall: No suspicious bony lesions. Overlying soft tissues appear unremarkable. IMPRESSION: Normal for age, source of current chest tightness symptoms is not seen. Dictated by: Hua Wu M.D. on 03/07/2019 at 20:28 Approved by: Hua Wu M.D. on 03/07/2019 at 20:29 ECG Data Attestation: I personally reviewed and interpreted this ECG as follows: (On multiple EKGs normal sinus rhythm with rate 63-74 ST changes in inferior leads, depression in V2/3 (no changes when patient symptomatic)) Prior ECG tracings: available for review <Xenia Weems DO - Last Filed: 03/08/19 02:14> Lab Data Attestation: I reviewed the patient's lab results. Lab Results 03/07/19 03/07/19 03/07/19 Range/Units 20:30 20:30 20:30 WBC 6.6 (4.5-11.0) X10^3/uL RBC 4.90 (4.0-5.2) X10^6/uL Hgb 15.7 (12.0-16.0) g/dL Hct 45.2 (36-46) % MCV 92.1 (80-100) fL MCH 31.9 (26-34) PG MCHC 34.7 (30-36) % RDW 13.1 (11.6-14.8) % Plt Count 293 (150-400) X10^3/uL Neut % (Auto) 60.0 (50-75) % Lymph % (Auto) 30.5 (25-40) % Canyon % (Auto) 8.3 (3-14) % Eos % (Auto) 0.3 L (2-4) % Baso % (Auto) 0.9 (0-2) % Neut # (Auto) 4000 (0270-9412) /uL Lymph # (Auto) 2000 (5262-0736) /uL Canyon # (Auto) 500 (0-900) /uL Eos # (Auto) 0 (0-450) /uL Baso # (Auto) 100 (0-100) /uL APTT (26.4-36.2) SECONDS Sodium 136 L (137-145) mmol/L Potassium 4.1 (3.4-5.1) mmol/L Chloride 96 L (98-107) mmol/L Carbon Dioxide 26 (22-32) mmol/L BUN 14 (7-17) mg/dL Creatinine 0.50 L (0.52-1.04) mg/dL Estimated GFR > 60.0 (>60) mL/min BUN/Creatinine Ratio 28.0 H (6-22) Glucose 296 H (80-110) mg/dL Calcium 9.1 (8.4-10.2) mg/dL Total Bilirubin 1.6 H (0.2-1.3) mg/dL AST 33 (14-36) IU/L ALT 34 (9-52) IU/L Alkaline Phosphatase 142 H (38-126) U/L Total Creatine Kinase 128 (30-135) U/L CK-MB (CK-2) 1.00 (<2.37) ng/mL CK-MB (CK-2) Rel Index 0.8 L (1.5-5.0) % Troponin I 0.678 H* (0.01-0.034) ng/mL B-Natriuretic Peptide 285 H (<100) Total Protein 7.2 (6.3-8.2) g/dL Albumin 4.0 (3.5-5.0) g/dL Globulin 3.2 (1.7-4.1) g/dL Albumin/Globulin Ratio 1.3 (1.0-2.8) Lipase 62 (23-300) U/L Influenza A & B (PCR) Negative (Negative) 03/07/19 03/07/19 Range/Units 20:30 22:25 WBC (4.5-11.0) X10^3/uL RBC (4.0-5.2) X10^6/uL Hgb (12.0-16.0) g/dL Hct (36-46) % MCV (80-100) fL MCH (26-34) PG MCHC (30-36) % RDW (11.6-14.8) % Plt Count (150-400) X10^3/uL Neut % (Auto) (50-75) % Lymph % (Auto) (25-40) % Canyon % (Auto) (3-14) % Eos % (Auto) (2-4) % Baso % (Auto) (0-2) % Neut # (Auto) (0914-5868) /uL Lymph # (Auto) (0109-2175) /uL Canyon # (Auto) (0-900) /uL Eos # (Auto) (0-450) /uL Baso # (Auto) (0-100) /uL APTT 25 L (26.4-36.2) SECONDS Sodium (137-145) mmol/L Potassium (3.4-5.1) mmol/L Chloride (98-107) mmol/L Carbon Dioxide (22-32) mmol/L BUN (7-17) mg/dL Creatinine (0.52-1.04) mg/dL Estimated GFR (>60) mL/min BUN/Creatinine Ratio (6-22) Glucose (80-110) mg/dL Calcium (8.4-10.2) mg/dL Total Bilirubin (0.2-1.3) mg/dL AST (14-36) IU/L ALT (9-52) IU/L Alkaline Phosphatase (38-126) U/L Total Creatine Kinase (30-135) U/L CK-MB (CK-2) (<2.37) ng/mL CK-MB (CK-2) Rel Index (1.5-5.0) % Troponin I 1.020 H* (0.01-0.034) ng/mL B-Natriuretic Peptide (<100) Total Protein (6.3-8.2) g/dL Albumin (3.5-5.0) g/dL Globulin (1.7-4.1) g/dL Albumin/Globulin Ratio (1.0-2.8) Lipase (23-300) U/L Influenza A & B (PCR) (Negative) Imaging Data Chest x-ray: Radiologist's impression: [address] [address] XRay Report Signed Patient: Suma Campos MMR#: [id number] : 3Acct:[id number] Age/Sex: 63 / FDate of Service: 03/07/19 Loc: ED Accession Number: [id number] Procedure: XR chest 1V Ordering Provider: Shanice Og P.A-C PROCEDURE: XR CHEST 1V INDICATIONS: chest tight TECHNIQUE: One view of the chest was acquired. COMPARISON: None. FINDINGS: Surgical changes and devices: None. Lungs and pleura: Lungs are clear. No pleural effusions or pneumothorax. Mediastinum: Mediastinal contours appear normal. Heart size is normal. Bones and chest wall: No suspicious bony lesions. Overlying soft tissues appear unremarkable. IMPRESSION: Normal for age, source of current chest tightness symptoms is not seen. Dictated by: Hua Wu M.D. on 03/07/2019 at 20:28 ECG Data Attestation: I personally reviewed and interpreted this ECG as follows: Prior ECG tracings: available for review Interpretation: EKG 1. From walk-in clinic sinus rhythm rate 67. Interval 168 QRS 89 QTC 400. She does appear to have some peaked T-waves V2 and V3. Questionable ST elevation in lead [address] depressions appreciated Q-wave noted in lead 3 which is similar to previous EKG EKG 2. Sinus rhythm rate 63 T-waves in V2 and V3 are improved slight ST depression V2 and the [address] elevation in lead 2 only Q-wave present in lead 3 unchanged EKG 3. Sinus rhythm are fact noted rate 69 similar to previous EKGs poor tracing of lead 2 EKG 4. Sinus rhythm rate 74 similar previous EKGs however the ST segment in lead 2 appears improved no significant ST depressions appreciated no T-wave inversions EKG 5. Sinus rhythm rate [address] changes similar to previous MDM Narrative Medical decision making narrative: I have worked closely with Alysa with this case and the patient. Patient has had intermittent left-sided chest pain which she says resolves with burping. She has been given nitroglycerin which she says also helps. Patient's repeat troponin is significantly more elevated after just 2 hours. She continues to have intermittent chest pain. Repeat EKG 5. Does not show any changes. She is placed on nitroglycerin drip. I have spoken with [facility] to arrange for her to be transferred to [facility]. , is the accepting physician at [place]. Patient overall is hemodynamically stable. blood pressure did drop initially with the 1st nitroglycerin but quickly improved. Discharge Plan Departure Patient Disposition: [facility] Clinical Impression: Non-ST elevated myocardial infarction (non-STEMI) Discharge Date/Time: 03/08/19 00:30 Interventions: ED Discharge Assessment Last Done: 03/08/19 00:35 Prescriptions: No Action biotin 5 mg capsule 5 mg PO DAILY RF: 0 vitamin E [Aquasol E (d-alpha tocopherol)] 50 unit/mL Drops PO QDAY Qty: 0 RF: 0 cholecalciferol (vitamin D3) [Vitamin D3] 2,000 unit Tablet PO QDAY Qty: 0 RF: 0 ascorbic acid (vitamin C) 500 mg Tablet PO QDAY Qty: 0 RF: 0 [CALCIUM/MAG/ZINC] PO QDAY Qty: 0 RF: 0 [probiotics] Qty: 0 RF: 0 Test Strips - Freestyle NA QDAY Qty: 90 RF: 3 Glucose: Home Monitoring Kit NA QDAY Qty: 1 RF: 0 Referrals: Klarissa Webb MD [Primary Care Provider] - <Xenia Weems DO - Last Filed: 03/08/19 02:14> Cosign ED Attending Cosgiselaature Attestation: I was immediately available in the department for consultation. Documentation has been reviewed. I agree with assessment and plan.
[2019-03-07 20:41] LABS: Add Manual Diff / Slide Review NO; Basophils Absolute Auto 100 /uL (0-100); Basophils Percent Auto 0.9 % (0-2); Eosinophils Absolute Auto 0 /uL (0-450); Eosinophils Percent Auto 0.3 % (2-4); Hematocrit 45.2 % (36-46); Hemoglobin 15.7 g/dL (12.0-16.0); Lymphocytes Absolute Auto 2000 /uL (1100-4500); Lymphocytes Percent Auto 30.5 % (25-40); Mean Corpuscular HGB Conc 34.7 % (30-36); Mean Corpuscular Hemoglobin 31.9 PG (26-34); Mean Corpuscular Volume 92.1 fL (80-100); Monocytes Absolute Auto 500 /uL (0-900); Monocytes Percent Auto 8.3 % (3-14); Neutrophils Absolute Auto 4000 /uL (1500-7000); Platelet Count 293 X10^3/uL (150-400); Red Cell Distribution Width 13.1 % (11.6-14.8); White Blood Cell Count 6.6 X10^3/uL (4.5-11.0)
[2019-03-07 20:51] LABS: Alanine Aminotransferase 34 IU/L (9-52); Albumin Globulin Ratio 1.3 (1.0-2.8); Alkaline Phosphatase 142 U/L (38-126); Aspartate Aminotransferase 33 IU/L (14-36); Bilirubin Total 1.6 mg/dL (0.2-1.3); Blood Urea Nitrogen 14 mg/dL (7-17); Calcium 9.1 mg/dL (8.4-10.2); Carbon Dioxide 26 mmol/L (22-32); Chloride 96 mmol/L (98-107); Creatine Kinase 128 U/L (30-135); Estimated Glomerular Filt Rate > 60.0 mL/min (>60); Globulin 3.2 g/dL (1.7-4.1); Glucose 296 mg/dL (80-110); HEMOLYSIS 16 (0-50); Lipase 62 U/L (23-300); Potassium 4.1 mmol/L (3.4-5.1); Sodium 136 mmol/L (137-145); Total Protein 7.2 g/dL (6.3-8.2)
[2019-03-07 20:56] LABS: Influenza A and B by PCR Rapid Negative (Negative)
[2019-03-07 21:04] LABS: B Type Natriuretic Peptide 285 (<100)
[2019-03-07 21:06] LABS: CKMB % Relative Index 0.8 % (1.5-5.0)
[2019-03-07 21:37] LABS: Troponin I 0.678 ng/mL (0.01-0.034)
[2019-03-07] MEDS: NITROGLYCERIN 0.4 MG SL TAB SL (21:39)
[2019-03-07] MEDS: HEPARIN 5,000 UNIT/ML VIAL 5000 UNIT IV (21:42)
[2019-03-07] MEDS: HEPARIN DRIP 25,000 UNIT/500 ML IV.SOLN 20 UNIT IV (21:45)
[2019-03-07 21:50] LABS: PTT Partial Thromboplastin Tim 25 SECONDS (26.4-36.2)
--- NOTE | 2019-03-07 21:53 | PC.NURSE ---
She developed left c/p,#4 on 1 to 10 scale.MD notified,one sl nitro given and pain free after.
--- NOTE | 2019-03-07 22:50 | PC.NURSE ---
C/O l c/p.#4 on 1-10scale.MD notified and 12 lead ekg ordered.
[2019-03-07] MEDS: NITROGLYCERIN 50 MG/250 ML INFUS..BTL IV (23:21)
[2019-03-08 00:35] VITALS: BP 117/71; PULSE 77; RESP 18; TEMP 36.6; O2SAT 98
== END 2019-03-08 00:30 | disposition short-term general hospital (02) ==
PROVIDERS: Internal Medicine; Emergency Provider Emergency Medicine; PCP Family Medicine
DX: I21.4 Non-ST elevation (NSTEMI) myocardial infarction (principal)
CPT/HCPCS: 36415; 71045; 80053; 82550; 82553; 83690; 83880; 84484; 85025; 85730; 87400; 93005; 93010; 93041; 96365; 96366; 96368; 96376; 99285; 99291; 99292; J1644

== ENCOUNTER 2019-07-09 00:50 | Observation (INO) | payer OTHER, SELFPAY ==
[2019-07-09] VITALS (14 sets, daily range): BP systolic 121–161; BP diastolic 56–90; PULSE 62–83; RESP 14–20; TEMP 36.3–36.8; O2SAT 94–97; BMI 30.8
--- NOTE | 2019-07-09 01:02 | DI.RAD.S_ITS ---
PROCEDURE: XR CHEST 1V INDICATIONS: chest pain TECHNIQUE: One view of the chest was acquired. COMPARISON: [facility], CR, XR CHEST 1V, 03/07/2019, 20:20. [facility], CR, XR CHEST 1V, 04/02/2018, 13:24. FINDINGS: Surgical changes and devices: None. Lungs and pleura: Lungs are clear. No pleural effusions or pneumothorax. Mediastinum: Mediastinal contours appear normal. Heart size is normal. Bones and chest wall: No suspicious bony lesions. Overlying soft tissues appear unremarkable. IMPRESSION: Normal for age, source of current chest pain symptoms is not seen. Dictated by: Hua Wu M.D. on 07/09/2019 at 8:25 Approved by: Hua Wu M.D. on 07/09/2019 at 8:26
--- NOTE | 2019-07-09 01:12 | ED.CHESTPAIN ---
HPI - Chest Pain General Chief Complaint: Chest Pain Stated Complaint: profuse sweating/feels awful/a little chest pain Time Seen by Provider: 07/09/19 00:55 Source: patient and family Mode of arrival: ambulatory Limitations: no limitations History of Present Illness HPI narrative: 63-year-old female smoker with history of hypertension, hyperlipidemia and NSTEMI resulting in cardiac stent in February presents with sudden onset significant fatigue, shortness of breath and diaphoresis with some vague left-sided chest pressure and radiation to left shoulder which started 45 minutes prior to arrival while working. Her symptoms had largely resolved by the time she had checked in. She states that she has been feeling abnormally tired for the past few weeks. She denies any specific provocation, palliation or radiation of her discomfort today. She did not take nitro but has taken her other medications MD complaint: chest pain Duration: now resolved Onset: during exertion Pain location: left chest Severity: moderate Quality: aching Pain radiation: LUE Relieving factors: rest Exacerbating factors: exertion Associated symptoms: nausea, diaphoresis and dyspnea Treatments prior to arrival chest pain: none Related Data Home Medications Medication Instructions Recorded Confirmed [CALCIUM/MAG/ZINC] PO QDAY #0 10/19/17 03/07/19 ascorbic acid (vitamin C) PO QDAY #0 10/19/17 03/07/19 cholecalciferol (vitamin D3) PO QDAY #0 10/19/17 03/07/19 [Vitamin D3] vitamin E [Aquasol E (d-alpha PO QDAY #0 10/19/17 03/07/19 tocopherol)] [probiotics] #0 12/11/17 03/07/19 biotin 5 mg capsule 5 mg PO DAILY 03/07/19 03/07/19 aspirin 81 mg tablet,delayed 81 mg PO DAILY 03/11/19 03/11/19 release atorvastatin 80 mg tablet 80 mg PO DAILY 03/11/19 03/11/19 clopidogrel 75 mg tablet 75 mg PO DAILY 03/11/19 03/11/19 vitamin E 400 unit capsule 400 unit PO DAILY 03/11/19 03/11/19 empagliflozin 10 mg tablet 10 mg PO DAILY 05/14/19 05/14/19 metformin 1,000 mg tablet 1,000 mg PO BID 05/14/19 05/14/19 metoprolol succinate ER 25 mg 25 mg PO DAILY 05/14/19 05/14/19 tablet,extended release 24 hr Previous Rx's Medication Instructions Recorded Glucose: Home Monitoring Kit kit NA QDAY #1 01/02/18 Test Strips - Freestyle str NA QDAY #90 01/02/18 losartan 25 mg tablet 25 mg PO DAILY #90 tab 03/11/19 blood sugar diagnostic strips #100 each 03/12/19 Allergies Allergy/AdvReac Type Severity Reaction Status Date / Time Penicillins [PENICILLINS] Allergy Unknown Verified 05/14/19 09:45 Sulfa (Sulfonamide Allergy Unknown Verified 05/14/19 09:45 Antibiotics) [SULFA (SULFONAMIDE ANTIBIOTICS)] Review of Systems Constitutional Denies chills, Denies fever(s), Denies lethargy and Denies weakness Eyes Denies change in vision, Denies eye discharge, Denies irritation and Denies loss of vision ENT Ears, Nose, Mouth, and Throat: Denies change in voice, Denies neck pain and Denies sore throat Cardiovascular Reports chest pain, Denies irregular heart rhythm, Reports lightheadedness, Denies palpitations, Reports dyspnea, Reports dyspnea on exertion and Denies orthopnea Respiratory Denies cough, Reports dyspnea, Reports dyspnea on exertion and Denies wheezing Gastrointestinal Gastrointestinal: Denies abdominal pain, Denies change in bowel habits, Denies diarrhea, Denies nausea and Denies vomiting Genitourinary Denies hematuria, Denies flank pain, Denies urinary incontinence and Denies urinary urgency Musculoskeletal Denies neck pain Integumentary/Breasts Denies pruritus, Denies erythema, Denies rash and Denies wounds Neurologic Denies confusion, Denies loss of vision and Denies weakness Psychiatric Denies anxiety, Denies confusion, Denies depression, Denies homicidal ideation and Denies suicidal ideation Endocrine Denies palpitations Hematologic/Lymphatic Denies easy bruising Allergic/Immunologic Denies wheezing [facility] Medical History Coronary artery disease (Chronic) Non-Q wave non-ST elevation myocardial infarction (NSTEMI) (Chronic) CTS (carpal tunnel syndrome) (Chronic 1997) Depression (Chronic 1977) Diabetes mellitus (Chronic 2009) HPV (human papilloma virus) infection (Chronic 2016) IBS (irritable bowel syndrome) (Chronic 1977) Acne (Resolved 1969) Chicken pox (Resolved 1961) Colon polyps (Resolved 2014) Foot pain (Resolved 1955) Fractures (Resolved 1973) Hemorrhoids (Resolved 1974) History of recurrent ear infection (Resolved 1967) Measles (Resolved 1962) Mumps (Resolved 1959) Recurrent sinusitis (Resolved 1959) Tinnitus (Resolved 1969) Surgical History Stented coronary artery (Chronic) Anesthesia (Resolved) Status post colonoscopy (Resolved) Family History Mother Cancer Family/Other Stomach cancer Family/Other Breast cancer Social History household members: family Smoking Status: Former smoker Family History Mother Cancer Family/Other Stomach cancer Family/Other Breast cancer Social History household members: family Smoking Status: Former smoker Exam Narrative Exam Narrative: GENERAL: [63] year old patient appears stated age. Well-nourished, well-developed patient, in mild distress. HEAD: Atraumatic. Normocephalic. EYES: Pupils equal round and reactive. Extraocular motions intact. No scleral icterus. No injection or drainage. ENT: Nose without bleeding, purulent drainage. Throat without erythema, tonsillar hypertrophy or exudate. Airway patent. NECK: Trachea midline. Non tender CARDIOVASCULAR: Regular rate and rhythm without murmurs, gallops, or rubs. RESPIRATORY: Clear to auscultation. Breath sounds equal bilaterally. No wheezes, rales, or rhonchi. GASTROINTESTINAL: Abdomen soft, non-tender, nondistended. EXTREMITIES: No edema or joint tenderness. BACK: Nontender without deformity or crepitance. No flank tenderness. NEURO: AOx3. SKIN: No rash or erythema of visible areas Initial Vital Signs Initial Vital Signs: Vital Signs Temperature 98 F 07/09/19 00:50 Pulse Rate 83 07/09/19 00:50 Respiratory Rate 18 07/09/19 00:50 Blood Pressure 161/82 H 07/09/19 00:50 Pulse Oximetry 97 07/09/19 00:50 Course Orders Ordered: ED Orders 07/09/19 Lipid Panel Routine 07/09/19 01:02 XR chest 1V Stat EKG-12 Lead Stat 07/09/19 01:10 Complete Blood Count AUTO DIFF Stat Comprehensive Metabolic Panel Stat Lipase Stat Partial Thromboplastin Time Stat Prothrombin Time INR Stat Troponin & CK Cardiac Panel Stat 07/09/19 06:59 Education, smoking cessation ONGOING 07/09/19 07:15 Troponin I Q8H 07/09/19 09:00 B Type Natriuretic Peptide Urgent Troponin I Stat EKG-12 Lead Urgent 07/09/19 15:15 Troponin I Q8H Acetaminophen (Tylenol) 650 mg PO Q6HR PRN PRN Reason: As Needed for Fever/Mild Pain Aspirin (Aspirin) 325 mg PO NOW ONE Stop: 07/09/19 09:01 Atorvastatin Calcium (Lipitor) 80 mg PO NOW ONE Stop: 07/09/19 09:01 Clopidogrel Bisulfate (Plavix) 75 mg PO DAILY WEN Dextrose (D50w) 25 gm IV PRN PRN PRN Reason: Hypoglycemia Enoxaparin Sodium (Lovenox) 40 mg SUBCUT DAILY WEN Sodium Chloride (Normal Saline 0.9%) 1,000 mls @ 80 mls/hr IV CONT WEN Insulin Aspart (Novolog Flexpen) 0 unit SUBCUT ACHS WEN; Protocol Insulin Glargine (Lantus Solostar (Pen)) 15 unit SUBCUT 0800 WEN Losartan Potassium (Cozaar) 25 mg PO DAILY WEN Metoprolol Succinate (Toprol Xl) 25 mg PO DAILY WEN Nitroglycerin (Nitrostat) 0.4 mg SL [id number] PRN PRN Reason: Chest Pain Discontinued Medications Metoprolol Succinate (Toprol Xl) 25 mg PO NOW ONE Stop: 07/09/19 09:01 Consultations Consultation #1: Discussed case with cardiology with Prov, no need for transfer, but needs to be admitted for typical work up. Consultation #2: Dr. King happy to accept on his service Vital Signs - 8 hr 07/09/19 00:50 07/09/19 01:02 07/09/19 03:00 Temperature 98 F Pulse Rate 83 75 74 Respiratory Rate 18 15 17 Blood Pressure 161/82 H Blood Pressure [Right Arm] 139/80 145/76 H Pulse Oximetry 97 95 95 07/09/19 04:00 07/09/19 04:50 Temperature 97.9 F Pulse Rate 77 72 Respiratory Rate 14 17 Blood Pressure 121/56 L 153/69 H Blood Pressure [Right Arm] Pulse Oximetry 94 96 MDM - Chest Pain Lab Data Result diagrams: 07/09/19 01:10 07/09/19 01:10 Lab Results 07/09/19 07/09/19 07/09/19 Range/Units 01:10 01:10 01:10 WBC 7.0 (4.5-11.0) X10^3/uL RBC 4.95 (4.0-5.2) X10^6/uL Hgb 15.8 (12.0-16.0) g/dL Hct 45.7 (36-46) % MCV 92.4 (80-100) fL MCH 31.9 (26-34) PG MCHC 34.5 (30-36) % RDW 13.7 (11.6-14.8) % Plt Count 264 (150-400) X10^3/uL Neut % (Auto) 52.1 (50-75) % Lymph % (Auto) 39.5 (25-40) % Cotton % (Auto) 6.3 (3-14) % Eos % (Auto) 1.3 L (2-4) % Baso % (Auto) 0.8 (0-2) % Neut # (Auto) 3700 (9815-7365) /uL Lymph # (Auto) 2800 (9155-8863) /uL Cotton # (Auto) 400 (0-900) /uL Eos # (Auto) 100 (0-450) /uL Baso # (Auto) 100 (0-100) /uL PT 9.8 L (10.1-12.7) SECONDS INR 0.9 (0.9-1.3) APTT 32 D (26.4-36.2) SECONDS Sodium 138 (137-145) mmol/L Potassium 4.1 (3.4-5.1) mmol/L Chloride 101 (98-107) mmol/L Carbon Dioxide 26 (22-32) mmol/L BUN 21 H (7-17) mg/dL Creatinine 0.70 (0.52-1.04) mg/dL Estimated GFR > 60.0 (>60) mL/min BUN/Creatinine Ratio 30.0 H (6-22) Glucose 188 H (80-110) mg/dL Calcium 9.9 (8.4-10.2) mg/dL Total Bilirubin 1.7 H (0.2-1.3) mg/dL AST 31 (14-36) IU/L ALT 33 (9-52) IU/L Alkaline Phosphatase 118 (38-126) U/L Total Creatine Kinase 308 H (30-135) U/L CK-MB (CK-2) 3.54 H (<2.37) ng/mL CK-MB (CK-2) Rel Index 1.1 L (1.5-5.0) % Troponin I < 0.012 (0.01-0.034) ng/mL Total Protein 7.5 (6.3-8.2) g/dL Albumin 4.5 (3.5-5.0) g/dL Globulin 3.0 (1.7-4.1) g/dL Albumin/Globulin Ratio 1.5 (1.0-2.8) Lipase 205 (23-300) U/L Point of Care Testing Glucose POC 157 Discharge Plan Departure Patient Disposition: Admitted as Observation Clinical Impression: Chest pain Qualifiers: Chest pain type: unspecified Qualified Code(s): R07.9 - Chest pain, unspecified Discharge Date/Time: 07/09/19 04:38 Interventions: ED Discharge Assessment Last Done: 07/09/19 04:00 Admit Date/Time: 07/09/19 03:46 Admit Provider: Jori King
[2019-07-09 01:25] LABS: Add Manual Diff / Slide Review NO; Basophils Absolute Auto 100 /uL (0-100); Basophils Percent Auto 0.8 % (0-2); Eosinophils Absolute Auto 100 /uL (0-450); Eosinophils Percent Auto 1.3 % (2-4); Hematocrit 45.7 % (36-46); Hemoglobin 15.8 g/dL (12.0-16.0); Lymphocytes Absolute Auto 2800 /uL (1100-4500); Lymphocytes Percent Auto 39.5 % (25-40); Mean Corpuscular HGB Conc 34.5 % (30-36); Mean Corpuscular Hemoglobin 31.9 PG (26-34); Mean Corpuscular Volume 92.4 fL (80-100); Monocytes Absolute Auto 400 /uL (0-900); Monocytes Percent Auto 6.3 % (3-14); Neutrophils Absolute Auto 3700 /uL (1500-7000); Neutrophils Percent Auto 52.1 % (50-75); Platelet Count 264 X10^3/uL (150-400); Red Blood Cell Count 4.95 X10^6/uL (4.0-5.2); Red Cell Distribution Width 13.7 % (11.6-14.8)
[2019-07-09 01:28] LABS: INR 0.9 (0.9-1.3); Prothrombin Time 9.8 SECONDS (10.1-12.7)
[2019-07-09 01:31] LABS: PTT Partial Thromboplastin Tim 32 SECONDS (26.4-36.2)
[2019-07-09 01:33] LABS: Alanine Aminotransferase 33 IU/L (9-52); Albumin 4.5 g/dL (3.5-5.0); Albumin Globulin Ratio 1.5 (1.0-2.8); Alkaline Phosphatase 118 U/L (38-126); Aspartate Aminotransferase 31 IU/L (14-36); Bilirubin Total 1.7 mg/dL (0.2-1.3); Blood Urea Nitrogen 21 mg/dL (7-17); Calcium 9.9 mg/dL (8.4-10.2); Carbon Dioxide 26 mmol/L (22-32); Chloride 101 mmol/L (98-107); Creatine Kinase 308 U/L (30-135); Estimated Glomerular Filt Rate > 60.0 mL/min (>60); Glucose 188 mg/dL (80-110); HEMOLYSIS 26 (0-50); Lipase 205 U/L (23-300); Potassium 4.1 mmol/L (3.4-5.1); Sodium 138 mmol/L (137-145); Total Protein 7.5 g/dL (6.3-8.2)
[2019-07-09 01:44] LABS: Troponin I < 0.012 ng/mL (0.01-0.034)
[2019-07-09 01:48] LABS: CKMB % Relative Index 1.1 % (1.5-5.0); Creatine Kinase MB 3.54 ng/mL (<2.37)
--- NOTE | 2019-07-09 05:39 | PC.NURSE ---
[employer] Desk Note: 0440: Admitted to acute care room 211. Pt is alert, oriented X3 and denies chest pain or pressure. IV in place in lt AC. Pt walked to bathroom upon admission, voided 350cc clear angela urine. Pt is type 2 diabetic: CBG at this time is 157. She is on telemetry.
--- NOTE | 2019-07-09 07:13 | PM.HP.1 ---
History of Present Illness Date Patient Seen: 07/09/19 Time Patient Seen: 07:14 Chief complaint: profuse sweating/feels awful/a little chest pain Narrative: 63-year-old female history of coronary artery disease with myocardial infarction last hospital admission February this year with stent placement. She also has diabetes type 2 hyperlipidemia and high blood pressure. Patient states she has never felt quite right since her stent placement in February. She says since that time she has had intermittent episodes of chest pain. She feels like her pain is over her heart radiates out and then gradually comes back in. That pain last for a few minutes up to about 15 minutes. She has had that a few times. During these episodes says she gets a little bit concerned but she has never sought attentive hospital care or gone to the emergency room. She has also had 3 or 4 episodes of what she describes as feeling hot flushed sweaty. She says those last for 15 minutes to half an hour she will sit down and showed go away. Due to these in just her on ease of this symptomatology. Patient came in after last night. Last night she had a sudden high what she describes as feeling hot and sweaty diaphoretic just not feeling well. This lasted for about half an hour she became concerned about her heart and came to the emergency room. Her previous heart attack had symptoms of flu. And weakness. She says since last night she has had no further hot flushes she has had no further chest pain. She says maybe she has some discomfort in the middle part of her chest when she lays on her left side. Patient denies shortness of breath tachycardia. Since her non ST wave elevation myocardial infarction back in February she has had a number of follow-up appointments with her primary care physician and Cardiology. She says she takes her medication every day. Her blood sugars are well controlled. She does not smoke. She intermittently drinks alcohol. She does not have exertional angina. She is not complaining of lower extremity edema. She is not complaining of significant shortness of breath with activity or at night. She has no nausea no numbness or tingling no gap balance or gait problems. 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 Recent cardiac imaging shows cardiac catheterization on 03/08/2009 occlusion of left circumflex and placement of a stent. Echocardiogram on 03/08/2019 shows normal biventricular function ejection fraction 55-60% with some inferior wall hypokinesis and grade 1 diastolic dysfunction mild mitral annular calcification without valve dysfunction. 0 patch on 04/14/2019 shows normal heart rate where PACs and PVCs no SVT AFib or V-tach Patient History Medical History (Updated 07/09/19 @ 07:17 by Jori King MD) Coronary artery disease (Chronic) Non-Q wave non-ST elevation myocardial infarction (NSTEMI) (Chronic) CTS (carpal tunnel syndrome) (Chronic 1997) Depression (Chronic 1977) Diabetes mellitus (Chronic 2009) HPV (human papilloma virus) infection (Chronic 2016) IBS (irritable bowel syndrome) (Chronic 1977) Acne (Resolved 1969) Chicken pox (Resolved 1961) Colon polyps (Resolved 2014) Foot pain (Resolved 1955) Fractures (Resolved 1973) Hemorrhoids (Resolved 1974) History of recurrent ear infection (Resolved 1967) Measles (Resolved 1962) Mumps (Resolved 1959) Recurrent sinusitis (Resolved 1959) Tinnitus (Resolved 1969) Surgical History Stented coronary artery (Chronic) Anesthesia (Resolved) Status post colonoscopy (Resolved) Family History (Updated 05/08/18 @ 17:40 by Denisse Mccall) Mother Cancer Family/Other Stomach cancer Family/Other Breast cancer Social History household members: family Smoking Status: Former smoker Family & Social History Family History Mother Cancer Family/Other Stomach cancer Family/Other Breast cancer Social History: household members family Prior Living Arrangements House Safety & Behavioral: Feels Safe in Current Yes Environment Been Physically Hurt or No Threatened By a Person Suicidal Ideation Description None Suicide Plan Description No Plan Tobacco & Substance use: Smoking Status Former smoker alcohol intake frequency 0-2 drinks per day Substance Use Type does not use Meds Home Medications Medication Instructions Recorded Confirmed Type [CALCIUM/MAG/ZINC] PO QDAY #0 10/19/17 03/07/19 History ascorbic acid (vitamin C) PO QDAY #0 10/19/17 03/07/19 History cholecalciferol (vitamin D3) PO QDAY #0 10/19/17 03/07/19 History [Vitamin D3] vitamin E [Aquasol E (d-alpha PO QDAY #0 10/19/17 03/07/19 History tocopherol)] [probiotics] #0 12/11/17 03/07/19 History Glucose: Home Monitoring Kit kit NA QDAY #1 01/02/18 03/07/19 Rx Test Strips - Freestyle str NA QDAY #90 01/02/18 03/07/19 Rx biotin 5 mg capsule 5 mg PO DAILY 03/07/19 03/07/19 History aspirin 81 mg tablet,delayed 81 mg PO DAILY 03/11/19 03/11/19 History release atorvastatin 80 mg tablet 80 mg PO DAILY 03/11/19 03/11/19 History clopidogrel 75 mg tablet 75 mg PO DAILY 03/11/19 03/11/19 History losartan 25 mg tablet 25 mg PO DAILY #90 tab 03/11/19 03/11/19 Rx vitamin E 400 unit capsule 400 unit PO DAILY 03/11/19 03/11/19 History blood sugar diagnostic strips #100 each 03/12/19 03/12/19 Rx empagliflozin 10 mg tablet 10 mg PO DAILY 05/14/19 05/14/19 History metformin 1,000 mg tablet 1,000 mg PO BID 05/14/19 05/14/19 History metoprolol succinate ER 25 mg 25 mg PO DAILY 05/14/19 05/14/19 History tablet,extended release 24 hr Allergies Allergy/AdvReac Type Severity Reaction Status Date / Time Penicillins [PENICILLINS] Allergy Unknown Verified 05/14/19 09:45 Sulfa (Sulfonamide Allergy Unknown Verified 05/14/19 09:45 Antibiotics) [SULFA (SULFONAMIDE ANTIBIOTICS)] Exam Vital Signs (past 8 hours): - 07/09/19 00:50 07/09/19 01:02 07/09/19 03:00 Temperature 98 F Pulse Rate 83 75 74 Respiratory Rate 18 15 17 Blood Pressure 161/82 H Blood Pressure [Right Arm] 139/80 145/76 H Pulse Oximetry 97 95 95 07/09/19 04:00 07/09/19 04:50 Temperature 97.9 F Pulse Rate 77 72 Respiratory Rate 14 17 Blood Pressure 121/56 L 153/69 H Blood Pressure [Right Arm] Pulse Oximetry 94 96 Oxygen Delivery Method Room Air Oxygen Flow Rate 0 Narrative Exam Narrative: Gen.: Alert and oriented x3 no apparent distress. HEENT: NCAT PERRLA tympanic membranes are clear nares are patent oral mucosa is moist no tonsillar hypertrophy neck is supple without lymphadenopathy no thyroid enlargement. Cardio: S1-S2 regular rate and rhythm no murmurs appreciated. Respiratory: Lungs are clear to auscultation no wheezes or crackles normal respiratory effort. Abdomen: Soft nontender no rebound or guarding no liver spleen enlargement no appreciable hernias Extremities: Full range of motion no appreciable weakness no cyanosis or edema. Neurologic: Grossly intact. Objective Labs Result Diagrams: 07/09/19 01:10 07/09/19 01:10 Labs: Laboratory Results - last 24 hr 07/09/19 07/09/19 07/09/19 01:10 01:10 01:10 WBC 7.0 RBC 4.95 Hgb 15.8 Hct 45.7 MCV 92.4 MCH 31.9 MCHC 34.5 RDW 13.7 Plt Count 264 Neut % (Auto) 52.1 Lymph % (Auto) 39.5 Chambers % (Auto) 6.3 Eos % (Auto) 1.3 L Baso % (Auto) 0.8 Neut # (Auto) 3700 Lymph # (Auto) 2800 Chambers # (Auto) 400 Eos # (Auto) 100 Baso # (Auto) 100 PT 9.8 L INR 0.9 APTT 32 D Sodium 138 Potassium 4.1 Chloride 101 Carbon Dioxide 26 BUN 21 H Creatinine 0.70 Estimated GFR > 60.0 BUN/Creatinine Ratio 30.0 H Glucose 188 H Calcium 9.9 Total Bilirubin 1.7 H AST 31 ALT 33 Alkaline Phosphatase 118 Total Creatine Kinase 308 H CK-MB (CK-2) 3.54 H CK-MB (CK-2) Rel Index 1.1 L Troponin I < 0.012 Total Protein 7.5 Albumin 4.5 Globulin 3.0 Albumin/Globulin Ratio 1.5 Lipase 205 Assessment & Plan Assessment & Plan narrative: 63-year-old female with coronary artery disease hypertension hyperlipidemia and type 2 diabetes. Patient is admitted to the hospital after an episode of hot flushes feeling weak. She has had intermittent chest pain since her coronary angiogram and stenting in February. Due to her risk factors heart history and clinical picture patient was admitted to the hospital for evaluation and further management of her symptoms. Plan at this point will be to go ahead and admit her to the hospital for observation and repeat serial cardiac enzymes. She will have a troponin and CPK and repeat EKG. Initial EKG evaluation shows no acute concerning findings. She will be placed on a beta-ashlyn and an aspirin Plavix and high-dose statin. Patient will have serial cardiac enzymes EKG and a repeat echocardiogram as she has had multiple symptom all eg events over the last 6 months to help rule out if there has been further decline in her heart function. She will also have a BNP. Her x-ray shows no acute heart failure. Diabetes type 2 non insulin dependent. Will hold her oral medication. Will place her on 15 mg of long-acting insulin with insulin sliding-scale coverage. Will monitor blood sugars a.c. a chests and provide a diabetic diet. Hyperlipidemia. Patient will be placed back on her high-dose statin therapy. Hypertension. Blood pressure looks okay this morning. Will replace her antihypertensive with her beta-ashlyn and angiotensin receptor ashlyn. Irritable bowel syndrome with history of gastric stress ulcers. Currently not on a proton pump inhibitor and no real problems. Disposition and plan. Serial cardiac enzymes repeat echocardiogram will follow these. Follow these are normal patient could be discharged home to follow up with her primary care physician and Cardiology. If there is abnormalities we will address and consult Cardiology at that point.
--- NOTE | 2019-07-09 07:45 | DI.ECHO.S_ITS ---
[place] +---------+ [facility] +---------+ : : [address] [place] : : : : [id number] : : : : Phone: [phone]+ Echocardiogram Report + + :Name: SERG INGRAM Study Date: 07/09/2019 Height: 67 in : :[facility] Exam Location: [facility] Weight: 197 lb : : Gender: Female BSA: 2.0 m2 : :: 1955 Age: 63 yrs BP: 129/78 mmHg: :Reason For Study: CP : : Performed By: Indra Whyte : :Referring: ENRIQUE WILKES : + + Interpretation Summary Left ventricular systolic function is mildly reduced with the ejection fraction visually estimated to be 45-50% with mild hypokinesis of the proximal and mid inferior and inferoposterior grant extending into the mid inferior septum. The right ventricle is normal in size and function. Pulmonary artery pressures cannot be estimated because of the lack of a measurable TR jet velocity but the IVC suggests a CVP of around 8 mmHg. Both atria are normal in size. There is mild mitral regurgitation. There is no other significant valvular heart disease. The ascending aorta is mildly enlarged. Procedure: A two-dimensional transthoracic echocardiogram with color flow and Doppler was performed. The study quality was technically adequate. There is no prior echocardiogram noted for this patient. A contrast injection of Definity was performed to improve assessment of LV function. The patient was in normal sinus rhythm during the exam. Left Ventricle: The left ventricle is normal in size. There is normal left ventricular wall thickness. Left ventricular systolic function is mildly reduced. The ejection fraction is estimated to be 45-50%. There is mild hypokinesis of the proximal and mid inferior and inferoposterior grant extending into the mid inferior septum. Diastolic function could not be accurately assessed due to contradictory data. Right Ventricle: The right ventricle is normal in size and function. Atria: Both atria are normal in size. The interatrial septum is intact with no evidence for an atrial septal defect. Mitral Valve: There is mild mitral annular calcification. The mitral valve leaflets appear normal. There is no evidence of stenosis, fluttering, or prolapse. There is mild mitral regurgitation. Aortic Valve: The aortic valve is trileaflet. The aortic valve opens well. There is trace aortic regurgitation. Tricuspid Valve: The tricuspid valve is normal in structure and function. No tricuspid regurgitation. Pulmonary artery pressures cannot be estimated because of the lack of a measurable TR jet velocity but the IVC suggests a CVP of around 8 mmHg. Pulmonic Valve: The pulmonic valve is normal in structure and function. There is trace pulmonic regurgitation. There is no other significant valvular heart disease. Great Vessels: The aortic root is normal size. The ascending aorta is mildly enlarged. The pulmonary artery is normal size. The IVC is dilated (diameter is greater than 2.1 cm) yet it collapses greater than 50% with a sniff. This suggests a right atrial pressure of 8 mm Hg. Pericardium/ Pleura There is no pericardial effusion. There is no pleural effusion. MMode/2D Measurements & Calculations LVIDd: 5.1 cm LVOT diam: 2.2 cm LVIDs: 4.1 cm Ao root diam: 3.1 cm FS: 19.4 % Aortic Jxn: 2.5 cm EPSS: 0.73 cm asc Aorta Diam: 3.5 cm IVSd: 0.88 cm Ao Arch Diam (Prox Trans): 3.0 cm LVPWd: 0.85 cm LV santana. diameter/BSA (cm/m^2): 2.6 LV sys. diameter/BSA (cm/m^2): 2.1 LA dimension: 4.1 cm RA long axis: 4.2 cm LA A2 area: 17.8 cm2 RA area: 14.5 cm2 LA A4 area: 19.6 cm2 RA vol: 42.6 ml LA length (vol): 5.3 cm RA : 21.2 ml/m2 LA vol: 55.9 ml IVC diam: 2.3 cm LA vol index: 27.8 ml/m2 Doppler Measurements & Calculations Ao V2 max: 111.2 cm/sec LVOT Max Gino: 64.2 cm/sec Ao V2 mean: 83.1 cm/sec LV V1 max P.6 mmHg Ao max P.9 mmHg LV V1 VTI: 15.5 cm Ao mean P.0 mmHg CORINNA(I,D): 2.3 cm2 Ao V2 VTI: 24.9 cm CORINNA(V,D): 2.1 cm2 sev ratio: 0.62 CORINNA indexed to BSA (cm^2/m^2): 1.1 MV E max gino: 81.6 cm/sec PA V2 max: 57.4 cm/sec MV A max gino: 92.7 cm/sec PA V2 mean: 42.5 cm/sec MV E/A: 0.88 PA mean P.78 mmHg Med Peak E' Gino: 4.9 cm/sec PA pr(Accel): 19.1 mmHg E/E' med: 16.8 PA Accel Time: 0.13 sec Lat Peak E' Gino: 5.6 cm/sec E/E' lat: 14.6 E/e' average: 15.7 MV dec time: 0.16 sec SV(LVOT): 57.2 ml Reading Physician:MERE
[2019-07-09] MEDS: SODIUM CHLORIDE 0.9% 1,000 ML 80 ML IV ×2 (08:09→23:48)
[2019-07-09 08:28] LABS: Cholesterol 141 mg/dL (140-199); HDL Cholesterol 40 mg/dL (40-60); LDL Cholesterol Calculated 40 mg/dL (<100); Triglycerides 307 mg/dL (35-150)
[2019-07-09 09:42] LABS: B Type Natriuretic Peptide < 100 (<100)
[2019-07-09 09:43] LABS: Troponin I < 0.012 ng/mL (0.01-0.034)
[2019-07-09] MEDS: INSULIN GLARGINE 100 UNIT/ML 3ML PEN 15 UNIT SUBCUT (09:54)
[2019-07-09] MEDS: ASPIRIN 325 MG TABLET PO (09:58)
[2019-07-09] MEDS: LOSARTAN 25 MG TABLET PO (09:59)
[2019-07-09] MEDS: ENOXAPARIN 40 MG/0.4 ML SYRINGE SUBCUT (09:59)
[2019-07-09] MEDS: CLOPIDOGREL 75 MG TABLET PO (09:59)
[2019-07-09] MEDS: METOPROLOL ER 25 MG TABLET PO (09:59)
[2019-07-09] MEDS: ATORVASTATIN 20 MG TABLET 80 MG PO (10:00)
--- NOTE | 2019-07-09 13:02 | CM.DANOTE ---
Addendum entered by Nancy Lizarraga LPN 07/09/19 13:50: [facility]: confirmation of fax receipt received: 16 pages: 07/09/19: 1:30 PM. As per discussion with UR HÉCTOR Miguel, will place this in Scan folder for [facility] followup and also to box on desk for follow charting in EMR as per the [facility] protocol. Addendum entered by Nancy Lizarraga LPN 07/09/19 13:19: Note: Pt has Medicare A as well as [facility] is not available today: will fax initial clinical to [facility] now. Addendum entered by Nancy Lizarraga LPN 07/09/19 13:16: Checked in briefly with pt. She was found in bed, room dark. Introduced self and role. 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 She says she lives in [place] and her son Win and his girlfriend Skye live with her. She is just waiting for tests to be completed and for an update from Dr. King and plans to drive herself home when ok for d/c. Original Note: Discharge Planning/Care Management DCP: case receeived, EMR reviewed and discussed in Team Rounds. Pt is a 63 year old female, currently employed by [employer], who admitted early this mornin to care of Dr. Jori King. PCPP Dr. Klarissa Webb Payer: [facility] Full dx and POC are in process with Dr. 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 If not, cardiology will be consulted. Pt carries diagnosis of type II diabetes/non insulin dependent. Hx of SC in February with a cardiac cath and placement of a stent. Will check in with pt and follow prn for d/c issues and options. CM Discharge Assessment Start: 07/09/19 13:00 Freq: Status: Active Protocol: Document 07/09/19 13:00 ITV (Rec: 07/09/19 13:01 ITV [id number]) Discharge Planning Assessment Advance Directives? No Advance Directives on File No History Provided By Patient Medical Record Prior Living Arrangements House Household Members family Independent with ADL's Yes Is patient alert and oriented? Yes Review Status In Process
--- NOTE | 2019-07-09 15:33 | PC.NURSE ---
Day Shift- Pt had no complaint of chest pain or pressure throughout shift. OOB to BR with steady gait to BR, denies light-headedness or dizziness. IVF stopped while pt getting her ECHO per request by tech from [id number]. No other voiced concerns. Pt is requesting Miralax to prevent constipation as she uses this at home 3X per day.
[2019-07-09] MEDS: INSULIN ASPART 100 UNIT/ML INSULN PEN SUBCUT (16:51)
[2019-07-09] MEDS: POLYETHYLENE GLYCOL 3350 17 GM POWD.PACK PO (16:55)
[2019-07-09 17:57] LABS: Troponin I < 0.012 ng/mL (0.01-0.034)
[2019-07-10 05:00] VITALS: BP 129/80; PULSE 65; RESP 18; TEMP 37; O2SAT 97
--- NOTE | 2019-07-10 06:48 | PM.DS.1 ---
History of Present Illness Chief complaint: profuse sweating/feels awful/a little chest pain Narrative: 63-year-old female history of coronary artery disease with myocardial infarction last hospital admission February this year with stent placement. She also has diabetes type 2 hyperlipidemia and high blood pressure. Patient states she has never felt quite right since her stent placement in February. She says since that time she has had intermittent episodes of chest pain. She feels like her pain is over her heart radiates out and then gradually comes back in. That pain last for a few minutes up to about 15 minutes. She has had that a few times. During these episodes says she gets a little bit concerned but she has never sought attentive hospital care or gone to the emergency room. She has also had 3 or 4 episodes of what she describes as feeling hot flushed sweaty. She says those last for 15 minutes to half an hour she will sit down and showed go away. Due to these in just her on ease of this symptomatology. Patient came in after last night. Last night she had a sudden high what she describes as feeling hot and sweaty diaphoretic just not feeling well. This lasted for about half an hour she became concerned about her heart and came to the emergency room. Her previous heart attack had symptoms of flu. And weakness. She says since last night she has had no further hot flushes she has had no further chest pain. She says maybe she has some discomfort in the middle part of her chest when she lays on her left side. Patient denies shortness of breath tachycardia. Since her non ST wave elevation myocardial infarction back in February she has had a number of follow-up appointments with her primary care physician and Cardiology. She says she takes her medication every day. Her blood sugars are well controlled. She does not smoke. She intermittently drinks alcohol. She does not have exertional angina. She is not complaining of lower extremity edema. She is not complaining of significant shortness of breath with activity or at night. She has no nausea no numbness or tingling no gap balance or gait problems. 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 Recent cardiac imaging shows cardiac catheterization on 03/08/2009 occlusion of left circumflex and placement of a stent. Echocardiogram on 03/08/2019 shows normal biventricular function ejection fraction 55-60% with some inferior wall hypokinesis and grade 1 diastolic dysfunction mild mitral annular calcification without valve dysfunction. 0 patch on 04/14/2019 shows normal heart rate where PACs and PVCs no SVT AFib or V-tach Discharge Providers Date of admission: 07/09/19 03:46 Discharge Date: 07/10/19 Primary care physician: Klarissa Webb MD Discharge provider: Jori King MD Summary Discharge Diagnosis: Coronary artery disease recent stenting hospitalization for hot flashes sweatiness and intermittent chest pressure. New coronary event is unlikely Type 2 diabetes non insulin dependent Hypertension Hyperlipidemia Irritable bowel syndrome Hospital Course: Patient was admitted to the hospital after feeling hot and sweaty diaphoretic and extremely weak. Patient has intermittent episodes of this with also chest pressure which is not associated at the same time over the past few months. Symptoms became quite concerning last evening and came to the emergency department. Patient was admitted to the hospital for further evaluation workup to rule out underlying coronary disease exacerbation. She had telemetry monitoring which showed no significant concerning heart arrhythmias. Patient's cardiac enzymes serial troponins were negative x3. Patient had repeat EKG. Which showed no diagnostic changes. During the hospitalization patient had no further episodes. Patient because of her current concerning symptoms over the last few months had a repeat echocardiogram. Patient showed mild decreased ejection fraction compared to previous echocardiogram. I am not sure what to make of that other than it was read by 2 different cardiologists. By the time of discharge. Patient was feeling well back to her baseline she was asymptomatic she had no further episodes. Exam Vital Signs (past 8 hours): - 07/09/19 23:40 07/09/19 23:55 07/10/19 05:00 Temperature 97.3 F L 98.6 F Pulse Rate 63 65 Respiratory Rate 18 18 Blood Pressure 138/80 129/80 Pulse Oximetry 97 97 97 Oxygen Delivery Method Room Air Oxygen Flow Rate 0 Narrative Exam Narrative: Gen.: Alert and oriented x3 no apparent distress. HEENT: NCAT PERRLA tympanic membranes are clear nares are patent oral mucosa is moist no tonsillar hypertrophy neck is supple without lymphadenopathy no thyroid enlargement. Cardio: S1-S2 regular rate and rhythm no murmurs appreciated. Respiratory: Lungs are clear to auscultation no wheezes or crackles normal respiratory effort. Abdomen: Soft nontender no rebound or guarding no liver spleen enlargement no appreciable hernias Extremities: Full range of motion no appreciable weakness no cyanosis or edema. Neurologic: Grossly intact. Objective Labs Result Diagrams: 07/09/19 01:10 07/09/19 01:10 Labs: Laboratory Results - last 24 hr 07/09/19 07/09/19 07/09/19 01:10 09:12 09:12 Troponin I < 0.012 B-Natriuretic Peptide < 100 Triglycerides 307 H Cholesterol 141 LDL Cholesterol, Calc 40 HDL Cholesterol 40 07/09/19 17:24 Troponin I < 0.012 B-Natriuretic Peptide Triglycerides Cholesterol LDL Cholesterol, Calc HDL Cholesterol Discharge Plan Discharge Plan Discharge Problem: Chest pain Patient Disposition: Home Discharge comment: Return to regular medication follow-up with primary care physician in 10 days. Discharge Med Rec/Prescriptions Prescriptions: Continued biotin 5 mg capsule 5 mg PO DAILY RF: 0 Jardiance 10 mg tablet 10 mg PO QAM RF: 0 metoprolol succinate 25 mg tablet extended release 24 hr 25 mg PO DAILY RF: 0 metformin 1,000 mg tablet 1,000 mg PO BID RF: 0 cholecalciferol (vitamin D3) [Vitamin D3] 2,000 unit Tablet 1 tab PO DAILY Qty: 0 RF: 0 Probiotic 1 cap PO DAILY Qty: 0 RF: 0 atorvastatin 80 mg tablet 80 mg PO QPM RF: 0 clopidogrel 75 mg tablet 75 mg PO DAILY RF: 0 vitamin E 400 unit capsule 400 unit PO DAILY RF: 0 losartan 25 mg tablet 25 mg PO DAILY Qty: 90 RF: 2 OneTouch Verio strip .ROUTE .MEDSUPPLY Qty: 100 RF: 3 aspirin 81 mg tablet,chewable 81 mg PO QAM RF: 0 Follow up/Referrals: Klarissa Webb MD [Primary Care Provider] - Visit Report/Discharge Packet Visit Report Forms: Stroke Signs & Symptoms Discharge Data Primary Care Provider: Klarissa Webb Attending Provider: Jori King Admit Date/Time: 07/09/19 03:46
[2019-07-10 07:37] VITALS: O2SAT 97
[2019-07-10 07:45] VITALS: BP 143/90; PULSE 61; RESP 16; TEMP 36.4; O2SAT 97
[2019-07-10] MEDS: METOPROLOL ER 25 MG TABLET PO (08:45)
[2019-07-10] MEDS: CLOPIDOGREL 75 MG TABLET PO (08:45)
[2019-07-10] MEDS: LOSARTAN 25 MG TABLET PO (08:45)
--- NOTE | 2019-07-10 10:08 | PC.NURSE ---
Day sift: Pt left unit to private car via WC by MARIA LUISA Crawford. Paperwork signed and all querstions answered. Pt has all personal belongings. No new MD scrips.
--- NOTE | 2019-07-10 10:29 | CM.DPC ---
DCP: continued: Dr. King was here very early this morning and did ok pt for home with outpt clinic followup as per yesterday's plan. Went to check in with pt after Team Rounds. She had already left for home.
== END 2019-07-10 10:09 | disposition home or self-care (01) ==
LOC: ED 03:04 → AC 03:47
PROVIDERS: Admitting Provider Family Medicine; Emergency Provider Emergency Medicine; PCP Family Medicine; Visit Provider Family Medicine
DX: R07.9 Chest pain, unspecified (principal); I25.10 Atherosclerotic heart disease of native coronary artery without angina pectoris; Z95.5 Presence of coronary angioplasty implant and graft; E11.9 Type 2 diabetes mellitus without complications; Z79.84 Long term (current) use of oral hypoglycemic drugs; I10 Essential (primary) hypertension
CPT/HCPCS: 36415; 36591; 71045; 80053; 80061; 82550; 82553; 82962; 83690; 83880; 84484; 85025; 85610; 85730; 93005; 93010; 93306; 99217; 99219; 99283; 99285; G0378; J1650; Q9957

== ENCOUNTER → 2019-07-17 16:54 | Outpatient (CLI) | payer OTHER, SELFPAY ==
[2019-07-09 07:33] VITALS: BMI 30.8
[2019-07-17 17:32] LABS: Hematocrit 47.6 % (36-46); Hemoglobin 16.1 g/dL (12.0-16.0); Mean Corpuscular HGB Conc 33.8 % (30-36); Mean Corpuscular Hemoglobin 31.6 PG (26-34); Mean Corpuscular Volume 93.4 fL (80-100); Platelet Count 259 X10^3/uL (150-400); Red Cell Distribution Width 13.5 % (11.6-14.8); White Blood Cell Count 5.6 X10^3/uL (4.5-11.0)
[2019-07-17 17:57] LABS: Free T3, Triiodothyronine Free 3.14 pg/mL (2.77-5.27); Free T4, Direct Thyroxine 1.24 ng/dL (0.78-2.19)
[2019-07-17 18:13] LABS: Neutrophils Absolute Manual 2968 /uL (3000-5900); RBC Morphology Normal Morphology; Total Cells Counted 100
== END ==
PROVIDERS: PCP Family Medicine; Visit Provider Family Medicine
DX: R68.89 Other general symptoms and signs (principal)
CPT/HCPCS: 36415; 84439; 84443; 84481; 85025

== ENCOUNTER → 2019-08-20 17:19 | Outpatient (CLI) | payer OTHER, SELFPAY ==
[2019-07-09 07:33] VITALS: BMI 30.8
[2019-08-20 17:46] LABS: Bacteria Urine None Seen; RBC Urine None Seen (0-5/HPF)
[2019-08-20 18:08] LABS: Appearance Urine UA CLEAR; Bilirubin Urine UA NEGATIVE (NEGATIVE); Color Urine UA YELLOW; Glucose Urine UA 2+ g/dL (Negative); Ketones Urine UA NEGATIVE (NEGATIVE); Leukocyte Esterase Urine UA NEGATIVE (NEGATIVE); Nitrite Urine UA NEGATIVE (Negative); Occult Blood Urine UA NEGATIVE (Negative); Protein Urine UA NEGATIVE (Negative); Specific Gravity Urine UA <=1.005 (1.000-1.035); Urobilinogen Urine UA 0.2 E.U./dL (0.2)
[2019-08-20 18:16] LABS: Hemoglobin A1C% w Est Avg Glu 7.1 % (4.0-6.0)
[2019-08-20 18:21] LABS: Culture Indicated Urine Cult Not Indicated; Squamous Epithelial Cell Urine 0-1 /HPF (0-5/HPF); WBC Urine 0-1/HPF (0-5/HPF)
[2019-08-20 18:33] LABS: Alanine Aminotransferase 27 IU/L (9-52); Albumin 4.3 g/dL (3.5-5.0); Albumin Globulin Ratio 1.6 (1.0-2.8); Alkaline Phosphatase 66 U/L (38-126); Aspartate Aminotransferase 27 IU/L (14-36); Bilirubin Total 1.7 mg/dL (0.2-1.3); Blood Urea Nitrogen 15 mg/dL (7-17); Calcium 10.1 mg/dL (8.4-10.2); Carbon Dioxide 23 mmol/L (22-32); Chloride 104 mmol/L (98-107); Estimated Glomerular Filt Rate > 60.0 mL/min (>60); Globulin 2.7 g/dL (1.7-4.1); Glucose 153 mg/dL (80-110); HEMOLYSIS < 15 (0-50); Potassium 4.5 mmol/L (3.4-5.1); Sodium 139 mmol/L (137-145)
[2019-08-20 18:48] LABS: Free T3, Triiodothyronine Free 3.48 pg/mL (2.77-5.27); Free T4, Direct Thyroxine 1.45 ng/dL (0.78-2.19)
[2019-08-20 18:49] LABS: White Blood Cell Count 5.9 X10^3/uL (4.5-11.0)
[2019-08-20 18:52] LABS: Hemoglobin 16.1 g/dL (12.0-16.0); Mean Corpuscular HGB Conc 34.3 % (30-36); Mean Corpuscular Hemoglobin 31.8 PG (26-34); Mean Corpuscular Volume 92.9 fL (80-100); Platelet Count 257 X10^3/uL (150-400); Red Blood Cell Count 5.06 X10^6/uL (4.0-5.2); Red Cell Distribution Width 13.3 % (11.6-14.8)
[2019-08-20 18:53] LABS: Neutrophils Absolute Manual 3481 /uL (3000-5900); Total Cells Counted 100
[2019-08-20 18:54] LABS: RBC Morphology Normal Morphology
[2019-08-20 19:02] LABS: Thyroid Stimulating Hormone 1.98 uIU/mL (0.47-4.68)
[2019-08-23 14:51] LABS: Erythropoietin 8.9 mIU/mL (2.6-18.5)
[2019-08-25 20:11] LABS: Thyroid Stimulating Immunoglob < 89 % baseline (< 140)
== END ==
PROVIDERS: Family Provider Family Medicine; PCP Family Medicine; Visit Provider Internal Medicine Endocrinology, Diabetes & Metabolism
DX: E11.8 Type 2 diabetes mellitus with unspecified complications (principal); D75.1 Secondary polycythemia; E05.90 Thyrotoxicosis, unspecified without thyrotoxic crisis or storm
CPT/HCPCS: 36415; 80053; 81001; 82668; 83036; 84439; 84443; 84445; 84481; 85025

== ENCOUNTER → 2019-09-02 15:02 | Outpatient (CLI) | payer OTHER, SELFPAY ==
[2019-07-09 07:33] VITALS: BMI 30.8
== END ==
PROVIDERS: Family Provider Family Medicine; PCP Family Medicine
DX: Z23 Encounter for immunization (principal)
CPT/HCPCS: 90471; 90686

== ENCOUNTER 2019-12-26 02:15 | Emergency (ER) | payer OTHER, SELFPAY ==
[2019-07-09 07:33] VITALS: BMI 30.8
[2019-12-26 02:20] VITALS: BP 168/87; PULSE 70; RESP 19; TEMP 36.8; O2SAT 98; BMI 31.4
--- NOTE | 2019-12-26 02:34 | DI.RAD.S_ITS ---
PROCEDURE: XR CHEST 1V INDICATIONS: chest pain TECHNIQUE: One view of the chest was acquired. COMPARISON: [facility], CR, XR CHEST 1V, 07/09/2019, 1:06. [facility], CR, XR CHEST 1V, 03/07/2019, 20:20. FINDINGS: Surgical changes and devices: None. Lungs and pleura: Lungs are clear. No pleural effusions or pneumothorax. Mediastinum: Mediastinal contours appear normal. Heart size is normal. Bones and chest wall: No suspicious bony lesions. Overlying soft tissues appear unremarkable. IMPRESSION: Normal for age, source of current chest pain symptoms is not seen. Dictated by: Hua Wu M.D. on 12/26/2019 at 8:21 Approved by: Hua Wu M.D. on 12/26/2019 at 8:21
[2019-12-26 02:48] LABS: Add Manual Diff / Slide Review NO; Basophils Absolute Auto 100 /uL (0-100); Basophils Percent Auto 1.3 % (0-2); Eosinophils Absolute Auto 100 /uL (0-450); Eosinophils Percent Auto 1.4 % (2-4); Hematocrit 42.3 % (36-46); Hemoglobin 14.7 g/dL (12.0-16.0); INR 0.9 (0.9-1.3); Lymphocytes Absolute Auto 2200 /uL (1100-4500); Lymphocytes Percent Auto 37.1 % (25-40); Mean Corpuscular HGB Conc 34.8 % (30-36); Mean Corpuscular Hemoglobin 31.8 PG (26-34); Mean Corpuscular Volume 91.5 fL (80-100); Monocytes Absolute Auto 400 /uL (0-900); Monocytes Percent Auto 6.9 % (3-14); Neutrophils Absolute Auto 3200 /uL (1500-7000); Neutrophils Percent Auto 53.3 % (50-75); Platelet Count 223 X10^3/uL (150-400); Prothrombin Time 10.6 SECONDS (10.1-12.7); Red Blood Cell Count 4.63 X10^6/uL (4.0-5.2)
[2019-12-26 02:51] LABS: Alanine Aminotransferase 28 IU/L (<35); Albumin 4.6 g/dL (3.5-5.0); Albumin Globulin Ratio 1.5 (1.0-2.8); Alkaline Phosphatase 70 U/L (38-126); Aspartate Aminotransferase 28 IU/L (14-36); BUN Creatinine Ratio 25.7 (6-22); Bilirubin Total 2.9 mg/dL (0.2-1.3); Blood Urea Nitrogen 18 mg/dL (7-17); Carbon Dioxide 25 mmol/L (22-32); Chloride 99 mmol/L (98-107); Creatine Kinase 160 U/L (30-135); Estimated Glomerular Filt Rate > 60.0 mL/min (>60); Globulin 3.1 g/dL (1.7-4.1); Glucose 111 mg/dL (80-110); HEMOLYSIS < 15 (0-50); Lipase 93 U/L (23-300); PTT Partial Thromboplastin Tim 29 SECONDS (26.4-36.2); Sodium 135 mmol/L (137-145); Total Protein 7.7 g/dL (6.3-8.2)
[2019-12-26 03:03] LABS: Troponin I < 0.012 ng/mL (0.01-0.034)
[2019-12-26 03:06] LABS: CKMB % Relative Index 2.2 % (1.5-5.0)
--- NOTE | 2019-12-26 03:31 | ED_ITS ---
HPI - Chest Pain General Chief Complaint: Chest Pain Stated Complaint: chest pain/sweating/sob Time Seen by Provider: 12/26/19 03:11 Source: patient Mode of arrival: Ambulatory Limitations: no limitations History of Present Illness HPI narrative: 64-year-old female comes emergency department with complaint of chest pain. Patient states she was vacuuming. 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 She felt sweaty, nauseated. She states that the chest pain has since resolved and she states that is not present she did radiate a little to her left upper extremity. She did feel short of breath. She feels better at this time. She states that she will often get sweaty and not feel well when she is exerting herself at work and this often happens 1-3 times a night. Patient states she had a cardiac stent placed in February. She is on aspirin, Plavix she has a history of diabetes, dyslipidemia and takes hypertension medications. She denies any other surgical history. She quit smoking 23 years ago. No alcohol, no illicit. She is establishing with Dr. Armendariz but saw Dr. Williamson as her highway patrol commander most recently. Her stent was initially placed at [place]. Patient had evaluation with serial troponins and an echo that showed by ventricular EF of 50-60% with some inferior wall hypokinesis and grade 1 diastolic dysfunction, mild mitral annular calcification without valve dysfunction. Here in June of 2019 but no stress testing. Per prior report patient had stent in her left circumflex in the past. I do not have the catheterization report this is from prior primary care notes. Related Data Home Medications Medication Instructions Recorded Confirmed cholecalciferol (vitamin D3) 1 tab PO DAILY #0 10/19/17 11/21/19 [Vitamin D3] Probiotic 1 cap PO DAILY #0 12/11/17 11/21/19 biotin 5 mg capsule 5 mg PO DAILY 03/07/19 11/21/19 atorvastatin 80 mg tablet 80 mg PO QPM 03/11/19 11/21/19 clopidogrel 75 mg tablet 75 mg PO DAILY 03/11/19 11/21/19 vitamin E 400 unit capsule 400 unit PO DAILY 03/11/19 11/21/19 empagliflozin 10 mg tablet 10 mg PO QAM 05/14/19 11/21/19 metformin 1,000 mg tablet 1,000 mg PO BID 05/14/19 11/21/19 metoprolol succinate 25 mg 25 mg PO DAILY 05/14/19 11/21/19 tablet,extended release 24 hr aspirin 81 mg PO QAM 07/09/19 11/21/19 Previous Rx's Medication Instructions Recorded blood sugar diagnostic #100 each 03/12/19 venlafaxine 37.5 mg See Rx Instructions .ROUTE 07/17/19 capsule,extended release 24 hr .COMPLEX #60 cap Dexamethasone See Rx Instructions .ROUTE 09/05/19 .COMPLEX #60 gram losartan 25 mg tablet See Rx Instructions .ROUTE 11/28/19 .COMPLEX #90 tablet Allergies Allergy/AdvReac Type Severity Reaction Status Date / Time Penicillins [PENICILLINS] Allergy Unknown Verified 11/21/19 17:56 Sulfa (Sulfonamide Allergy Unknown Verified 11/21/19 17:56 Antibiotics) [SULFA (SULFONAMIDE ANTIBIOTICS)] nickel AdvReac Intermediate Rash Verified 11/21/19 17:56 Review of Systems Review of Systems ROS Unobtainable: All systems reviewed & are unremarkable except as noted in HPI and below Patient History Medical History Acne (Resolved 1969) Chicken pox (Resolved 1961) Colon polyps (Resolved 2014) Coronary artery disease (Chronic) CTS (carpal tunnel syndrome) (Chronic 1997) Depression (Chronic 1977) Diabetes mellitus (Chronic 2009) Foot pain (Resolved 1955) Fractures (Resolved 1973) Hemorrhoids (Resolved 1974) History of recurrent ear infection (Resolved 1967) HPV (human papilloma virus) infection (Chronic 2016) IBS (irritable bowel syndrome) (Chronic 1977) Measles (Resolved 1962) Mumps (Resolved 1959) Non-Q wave non-ST elevation myocardial infarction (NSTEMI) (Chronic) Recurrent sinusitis (Resolved 1959) Tinnitus (Resolved 1969) Surgical History Anesthesia (Resolved) Status post colonoscopy (Resolved) Stented coronary artery (Chronic) Social History household members: family Smoking Status: Former smoker Smoking Status: Former smoker alcohol intake frequency: 0-2 drinks per day Substance Use Type: does not use Exam Narrative Exam Narrative: GENERAL: Alert and oriented x three, well-appearing female in mild distress. HEENT: Head normocephalic, atraumatic, EOMI, pupils reactive, face symmetric, moist mucous membranes NECK: Supple, full range of motion CARDIOVASCULAR: Regular rate and rhythm without murmurs, rubs or gallops. No rash or skin changes to anterior chest. RESPIRATORY: Breath sounds equal bilaterally, no wheezes rales or rhonchi. No tachypnea, no accessory muscle use. ABDOMEN: Soft, nontender. Normoactive bowel sounds all 4 quadrants. No guarding or rebound, rigidity, no mass : No CVA tenderness EXTREMITIES: Normal range of motion, no clubbing or edema. 2+ pulses bilateral upper and lower extremities. Neurovascularly intact NEUROLOGICAL: Cranial nerves II through XII grossly intact. Moving all extremities SKIN: Warm, dry, no petechiae, no rashes or lesions. Initial Vital Signs Initial Vital Signs: Vital Signs Temperature 98.3 F 12/26/19 02:20 Pulse Rate 70 12/26/19 02:20 Respiratory Rate 19 12/26/19 02:20 Blood Pressure 168/87 H 12/26/19 02:20 Pulse Oximetry 98 12/26/19 02:20 Course Orders Ordered: ED Orders 12/26/19 02:20 Complete Blood Count AUTO DIFF Stat Comprehensive Metabolic Panel Stat Lipase Stat Partial Thromboplastin Time Stat Prothrombin Time INR Stat Troponin & CK Cardiac Panel Stat 12/26/19 02:24 EKG-12 Lead Routine EKG-12 Lead Stat 12/26/19 02:34 XR chest 1V Stat Discontinued Medications Aspirin (Aspirin Chew) 324 mg PO NOW ONE Stop: 12/26/19 03:48 Last Admin: 12/26/19 03:51 Dose: 324 mg Documented by: MMCFARL Pantoprazole Sodium (Protonix) 40 mg IV NOW ONE Stop: 12/26/19 05:33 Last Admin: 12/26/19 05:35 Dose: 40 mg Documented by: MMCFARL Vital Signs Vital signs: Vital Signs - 8 hr 12/26/19 02:20 12/26/19 04:00 12/26/19 04:25 Temperature 98.3 F Pulse Rate 70 74 77 Respiratory Rate 19 19 18 Blood Pressure 168/87 H Blood Pressure [Left Arm] 185/90 H Blood Pressure [Left Wrist] 161/76 H 185/90 H Pulse Oximetry 98 97 98 12/26/19 04:41 Temperature Pulse Rate 73 Respiratory Rate Blood Pressure Blood Pressure [Left Arm] 198/93 H Blood Pressure [Left Wrist] Pulse Oximetry 95 MDM - Chest Pain Lab Data Attestation: I reviewed the patient's lab results. Result diagrams: 12/26/19 02:20 12/26/19 02:20 Labs: Lab Results 12/26/19 12/26/19 12/26/19 Range/Units 02:20 02:20 02:20 WBC 6.0 (4.5-11.0) X10^3/uL RBC 4.63 (4.0-5.2) X10^6/uL Hgb 14.7 (12.0-16.0) g/dL Hct 42.3 (36-46) % MCV 91.5 (80-100) fL MCH 31.8 (26-34) PG MCHC 34.8 (30-36) % RDW 13.0 (11.6-14.8) % Plt Count 223 (150-400) X10^3/uL Neut % (Auto) 53.3 (50-75) % Lymph % (Auto) 37.1 (25-40) % Stanly % (Auto) 6.9 (3-14) % Eos % (Auto) 1.4 L (2-4) % Baso % (Auto) 1.3 (0-2) % Neut # (Auto) 3200 (3720-5982) /uL Lymph # (Auto) 2200 (9374-5473) /uL Stanly # (Auto) 400 (0-900) /uL Eos # (Auto) 100 (0-450) /uL Baso # (Auto) 100 (0-100) /uL PT 10.6 (10.1-12.7) SECONDS INR 0.9 (0.9-1.3) APTT 29 D (26.4-36.2) SECONDS Sodium 135 L (137-145) mmol/L Potassium 4.0 (3.4-5.1) mmol/L Chloride 99 (98-107) mmol/L Carbon Dioxide 25 (22-32) mmol/L BUN 18 H (7-17) mg/dL Creatinine 0.70 (0.52-1.04) mg/dL Estimated GFR > 60.0 (>60) mL/min BUN/Creatinine Ratio 25.7 H (6-22) Glucose 111 H (80-110) mg/dL Calcium 10.0 (8.4-10.2) mg/dL Total Bilirubin 2.9 H (0.2-1.3) mg/dL AST 28 (14-36) IU/L ALT 28 (<35) IU/L Alkaline Phosphatase 70 (38-126) U/L Total Creatine Kinase 160 H (30-135) U/L CK-MB (CK-2) 3.50 H (<2.37) ng/mL CK-MB (CK-2) Rel Index 2.2 (1.5-5.0) % Troponin I < 0.012 (0.01-0.034) ng/mL Total Protein 7.7 (6.3-8.2) g/dL Albumin 4.6 (3.5-5.0) g/dL Globulin 3.1 (1.7-4.1) g/dL Albumin/Globulin Ratio 1.5 (1.0-2.8) Lipase 93 (23-300) U/L Imaging Data Chest x-ray: Attestation: I personally reviewed and interpreted this imaging study as follows: My Impression: nap. ECG Data Attestation: I personally reviewed and interpreted this ECG as follows: Prior ECG tracings: available for review Interpretation: Sinus rhythm rate of 67 P are 178, QRS of 101 and QTC of 404. In [address] segment is slightly elevated compared to the P are interval. Patient has prior EKGs from 07/09/2019 and 03/07/[address] which show [address] appearing ST segments. No additional changes are noted. There is no depression noted. MDM Narrative Medical decision making narrative: Case was discussed with Dr. Armendariz, she finds patient case quite suspicions and feels that patient would be appropriate for catheterization although she states Dr. Thompson is the highway patrol commander this am so he may prefer to do stress testing and serial enzymes but she feels that patient would be appropriate for transfer to [facility] at this time. Patient is chest pain-free at this time. She received aspirin 324 mg. She has requested several times for food but was deferred for possible catherization. Patient is aware that this is a possibility but not guarantee of cath. She felt asa was irritating her stomach and wanted food. Given protonix. Patient continues to be asymptomatic. Spoke with Dr. Vides, hospitalist who accepts for transfer. Patient requested by [facility] nursing wet room supervisor to leave after 7am secondary to staffing. Discharge Plan Departure Patient Disposition: [facility] Clinical Impression: Chest pain Prescriptions: No Action biotin 5 mg capsule 5 mg PO DAILY RF: 0 Jardiance 10 mg tablet 10 mg PO QAM RF: 0 metoprolol succinate 25 mg tablet extended release 24 hr 25 mg PO DAILY RF: 0 metformin 1,000 mg tablet 1,000 mg PO BID RF: 0 venlafaxine 37.5 mg capsule,extended release 24hr See Rx Instructions .ROUTE .COMPLEX Qty: 60 RF: 5 cholecalciferol (vitamin D3) [Vitamin D3] 2,000 unit Tablet 1 tab PO DAILY Qty: 0 RF: 0 Probiotic 1 cap PO DAILY Qty: 0 RF: 0 Dexamethasone 0.25 % cream See Rx Instructions .ROUTE .COMPLEX Qty: 60 RF: 1 losartan 25 mg tablet See Rx Instructions .ROUTE .COMPLEX Qty: 90 RF: 0 atorvastatin 80 mg tablet 80 mg PO QPM RF: 0 clopidogrel 75 mg tablet 75 mg PO DAILY RF: 0 vitamin E 400 unit capsule 400 unit PO DAILY RF: 0 (DME) OneTouch Verio strip See Dose Instructions .ROUTE .MEDSUPPLY Qty: 100 RF: 3 aspirin 81 mg tablet,chewable 81 mg PO QAM RF: 0 Referrals: Klarissa Webb MD [Primary Care Provider] -
[2019-12-26] MEDS: ASPIRIN 81 MG CHEW TAB 324 MG PO (03:51)
[2019-12-26 04:00] VITALS: BP 161/76; PULSE 74; RESP 19; O2SAT 97
[2019-12-26 04:25] VITALS: BP 185/90; PULSE 77; RESP 18; O2SAT 98
[2019-12-26 04:41] VITALS: BP 198/93; PULSE 73; O2SAT 95
[2019-12-26 05:30] VITALS: BP 184/85; PULSE 69; RESP 21; O2SAT 98
[2019-12-26] MEDS: PANTOPRAZOLE 40 MG VIAL IV (05:35)
[2019-12-26 06:30] VITALS: BP 172/83; PULSE 67; RESP 22; O2SAT 98
== END 2019-12-26 06:55 | disposition short-term general hospital (02) ==
PROVIDERS: Emergency Provider Emergency Medicine; Family Provider Family Medicine; PCP Family Medicine
DX: R07.9 Chest pain, unspecified (principal); R06.02 Shortness of breath; Z95.5 Presence of coronary angioplasty implant and graft; Z79.82 Long term (current) use of aspirin
CPT/HCPCS: 36415; 71045; 80053; 82550; 82553; 83690; 84484; 85025; 85610; 85730; 93005; 96374; 99284; 99285; C9113

== ENCOUNTER → 2020-12-03 13:58 | Outpatient (CLI) | payer OTHER, SELFPAY ==
[2019-07-09 07:33] VITALS: BMI 30.8
[2020-12-03] MEDS: COVID-19 VACC(MODERNA-1)/PF 100 MCG/0.5 ML VIAL IM (14:08)
== END ==
PROVIDERS: PCP Family Medicine; Visit Provider Internal Medicine
DX: Z23 Encounter for immunization (principal)
CPT/HCPCS: 0011A; 91301

== ENCOUNTER → 2020-12-30 13:38 | Outpatient (CLI) | payer OTHER, SELFPAY ==
[2019-07-09 07:33] VITALS: BMI 30.8
[2020-12-30] MEDS: COVID-19 VACC #2, MRNA(MOD) 100 MCG/0.5 ML VIAL IM (13:47)
== END ==
PROVIDERS: PCP Family Medicine; Visit Provider Internal Medicine
DX: Z23 Encounter for immunization (principal)
CPT/HCPCS: 0012A; 91301

== ENCOUNTER → 2021-07-26 17:42 | Outpatient (CLI) | payer OTHER, SELFPAY ==
[2019-07-09 07:33] VITALS: BMI 30.8
[2021-07-26 22:07] LABS: Blood Urea Nitrogen 16 mg/dL (7-17); Calcium 9.5 mg/dL (8.4-10.2); Carbon Dioxide 27 mmol/L (22-32); Chloride 105 mmol/L (98-107); Estimated Glomerular Filt Rate > 60.0 mL/min (>60); Glucose 317 mg/dL (80-110); HEMOLYSIS < 15 (0-50); Potassium 4.5 mmol/L (3.4-5.1); Sodium 139 mmol/L (137-145)
== END ==
PROVIDERS: PCP Internal Medicine; Referring Provider Internal Medicine; Visit Provider Internal Medicine
DX: I10 Essential (primary) hypertension (principal)
CPT/HCPCS: 36415; 80048

== ENCOUNTER → 2021-09-19 17:39 | Outpatient (CLI) | payer OTHER, SELFPAY ==
[2019-07-09 07:33] VITALS: BMI 30.8
[2021-09-19 18:06] LABS: Add Manual Diff / Slide Review NO; Basophils Absolute Auto 100 /uL (0-100); Basophils Percent Auto 1.2 % (0-2); Eosinophils Absolute Auto 100 /uL (0-450); Eosinophils Percent Auto 0.9 % (2-4); Hematocrit 46.8 % (36-46); Hemoglobin A1C% w Est Avg Glu 9.7 % (4.0-6.0); Lymphocytes Absolute Auto 1900 /uL (1100-4500); Lymphocytes Percent Auto 27.9 % (25-40); Mean Corpuscular HGB Conc 34.2 % (30-36); Mean Corpuscular Volume 93.5 fL (80-100); Monocytes Absolute Auto 500 /uL (0-900); Monocytes Percent Auto 7.3 % (3-14); Neutrophils Absolute Auto 4200 /uL (1500-7000); Neutrophils Percent Auto 62.7 % (50-75); Platelet Count 217 X10^3/uL (150-400); Red Blood Cell Count 5.01 X10^6/uL (4.0-5.2); Red Cell Distribution Width 13.4 % (11.6-14.8); White Blood Cell Count 6.7 X10^3/uL (4.5-11.0)
[2021-09-19 18:15] LABS: Alanine Aminotransferase 38 IU/L (<35); Albumin 4.3 g/dL (3.5-5.0); Albumin Globulin Ratio 1.6 (1.0-2.8); Alkaline Phosphatase 94 U/L (38-126); Aspartate Aminotransferase 30 IU/L (14-36); BUN Creatinine Ratio 28.6 (6-22); Bilirubin Total 1.8 mg/dL (0.2-1.3); Blood Urea Nitrogen 18 mg/dL (7-17); Calcium 9.8 mg/dL (8.4-10.2); Carbon Dioxide 24 mmol/L (22-32); Chloride 105 mmol/L (98-107); Cholesterol 196 mg/dL (140-199); Estimated Glomerular Filt Rate > 60.0 mL/min (>60); Globulin 2.7 g/dL (1.7-4.1); Glucose 264 mg/dL (80-110); HDL Cholesterol 43 mg/dL (40-60); HEMOLYSIS < 15 (0-50); LDL Cholesterol Calculated 74 mg/dL (<100); Potassium 4.5 mmol/L (3.4-5.1); Sodium 138 mmol/L (137-145); Triglycerides 393 mg/dL (35-150)
[2021-09-19 18:52] LABS: Free T3, Triiodothyronine Free 4.19 pg/mL (2.77-5.27); Free T4, Direct Thyroxine 1.28 ng/dL (0.78-2.19)
[2021-09-19 19:06] LABS: Thyroid Stimulating Hormone 1.96 uIU/mL (0.47-4.68)
== END ==
PROVIDERS: PCP Family Medicine; Referring Provider Family Medicine; Visit Provider Family Medicine
DX: E11.69 Type 2 diabetes mellitus with other specified complication (principal); E78.2 Mixed hyperlipidemia; Z86.39 Personal history of other endocrine, nutritional and metabolic disease
CPT/HCPCS: 36415; 80053; 80061; 83036; 84439; 84443; 84481; 85025

== ENCOUNTER → 2021-10-24 09:51 | Outpatient (CLI) | payer OTHER, SELFPAY ==
[2019-07-09 07:33] VITALS: BMI 30.8
--- NOTE | 2021-10-24 09:52 | DI.NM.S_ITS ---
PROCEDURE: NM SOULEYMANE PERF SPECT R&S PHARM Rest and pharmacological stress myocardial perfusion SPECT with gated imaging and ejection fraction RADIOPHARMACEUTICAL: 8.5 mCi Tc-99m tetrafosmin IV at rest and 24.7 mCi Tc-99m tetrafosmin IV at peak effect of pharmacological stress. [id number] was performed. INDICATIONS: Other forms of angina pectoris TECHNIQUE: Radiopharmaceutical was injected at peak stress test, and also at rest. SPECT images were obtained. SPECT myocardial perfusion images were displayed in short axis, horizontal long axis, and vertical long axis views. Gated images were reviewed using [employer] software. COMPARISON: None. CARDIAC STRESS: A pharmacologic stress test was performed under the supervision of an attending staff, using an infusion of lexiscan 0.4mg IV X1. Hemodynamic data: There is normal blood pressure and heart rate response to pharmacologic stress. Symptoms: The patient had non-diagnostic chest pain during the study. Aminophylline: none EKG: Resting ECG showed sinus rhythm with non-specific ST-T changes. No ischemic ST changes with lexiscan; no ectopy. FINDINGS: Raw data: There is good myocardial uptake of radiotracer. No significant motion artifacts. Zxkn-bo-ycxzj ratio is 0.31 (normal is less than 0.38 for tetrafosmin tracer). Left ventricle function: Gated images demonstrate normal left ventricular wall thickening. No segmental wall motion abnormalities. No transient ischemic dilation; TID is 1.03 (normal less than 1.3). Left ventricle resting end diastolic volume is 98 mL. Left ventricle stress ejection fraction is 67%; normal range is above 45%. Myocardial perfusion: There is a severe fixed defect in the basal inferior and basal to mid inferolateral wall consistent with prior infarction and no significant brayan-infarct ischemia. IMPRESSION: Abnormal pharmaceutical nuclear stress test consistent with prior infarction. No ischemia. 1) There is a severe fixed defect in the basal inferior and basal to mid inferolateral wall consistent with prior infarction and no significant brayan-infarct ischemia. 2) Normal left ventricular size, wall motion, and systolic function (EF 67% post stress). 3) No ECG evidence of ischemia. 4) Non-diagnostic chest pain during the study. 5) No prior nuclear stress test available for comparison. Dictated by: Jacinta Williamson MD on 10/24/2021 at 16:27 Approved by: Jacinta Williamson MD on 10/24/2021 at 16:31
[2021-10-24 14:01] LABS: COVID19 -Nasal RAPID Negative (Negative)
== END ==
PROVIDERS: PCP Family Medicine; Referring Provider Internal Medicine; Visit Provider Internal Medicine
DX: R94.39 Abnormal result of other cardiovascular function study (principal); I20.8 Other forms of angina pectoris; Z20.822 Contact with and (suspected) exposure to COVID-19
CPT/HCPCS: 78452; 87635; 93017; A9502; J2785

== ENCOUNTER 2021-11-11 16:45 | Emergency (ER) | payer OTHER, SELFPAY ==
[2019-07-09 07:33] VITALS: BMI 30.8
[2021-11-11 17:07] VITALS: BP 175/88; PULSE 78; RESP 22; TEMP 36.6; O2SAT 98; BMI 31.8
--- NOTE | 2021-11-11 17:35 | ED_ITS ---
HPI - Extremity Problem <Yosef Campos PA-C - Last Filed: 11/11/21 19:19> General Chief complaint: Extremity Problem,Nontraumatic Stated complaint: DIBETIC RT BIG TOE INFECTED Time Seen by Provider: 11/11/21 17:10 Source: patient Mode of arrival: Ambulatory History of Present Illness HPI Narrative: Patient is a 65-year-old female with a history of diabetes presenting to the emergency department today for evaluation of a right great toe infection. Patient states that she noticed that she may have an infection in her right great toe last night when taking off her shoes and socks. Patient states that she noticed redness around the toe, noting that the medial aspect of the toe looked ?deflated?. Patient has a history of peripheral neuropathy throughout the bilateral lower extremities in notes that she does not feel increased pain in the right great toe. No fever, chills, chest pain, cough, shortness of breath, nausea, vomiting, diarrhea, abdominal pain, dysuria, hematuria reported. No other concerns are voiced at this time. Related Data Home Medications Medication Instructions Recorded Confirmed cholecalciferol (vitamin D3) 50 1 tab PO DAILY #0 10/19/17 10/05/21 mcg (2,000 unit) tablet (Vitamin D3) Probiotic 1 cap PO DAILY #0 12/11/17 10/05/21 biotin 5 mg capsule 5 mg PO DAILY 03/07/19 10/05/21 atorvastatin 80 mg tablet 80 mg PO QPM 03/11/19 10/05/21 vitamin E 400 unit capsule 400 unit PO DAILY 03/11/19 10/05/21 aspirin 81 mg chewable tablet 81 mg PO QAM 07/09/19 10/05/21 metoprolol succinate 25 mg 50 mg PO DAILY tab 09/21/21 10/05/21 tablet,extended release 24 hr empagliflozin 10 mg tablet 25 mg PO QAM tab 10/05/21 10/05/21 (Jardiance) Previous Rx's Medication Instructions Recorded blood sugar diagnostic (OneTouch #100 each 03/12/19 Verio test strips) Dexamethasone See Rx Instructions .ROUTE 09/05/19 .COMPLEX #60 gram acyclovir 5 % topical cream 1 applic TOPICAL 5XD 4 Days #5 g 09/21/21 semaglutide 1 mg/dose (2 mg/1.5 1 mg (0.75 mL) SUBCUT QWEEK #3 ml 10/05/21 mL) subcutaneous pen injector (Ozempic) clindamycin HCl 300 mg capsule 300 mg PO BID 7 Days #14 cap 11/11/21 Allergies Allergy/AdvReac Type Severity Reaction Status Date / Time Penicillins [PENICILLINS] Allergy Unknown Verified 11/11/21 17:07 Sulfa (Sulfonamide Allergy Unknown Verified 11/11/21 17:07 Antibiotics) [SULFA (SULFONAMIDE ANTIBIOTICS)] nickel AdvReac Intermediate Rash Verified 11/11/21 17:07 Review of Systems <Yosef Campos PA-C - Last Filed: 11/11/21 19:19> Constitutional Constitutional: Denies chills, Denies fatigue, Denies fever(s), Denies frequent falls, Denies lethargy and Denies weakness Eyes Eyes: Denies loss of vision ENT Ears, Nose, Mouth, and Throat: Denies dizziness and Denies neck pain Cardiovascular Cardiovascular: Denies chest pain, Denies irregular heart rhythm, Denies lightheadedness, Denies palpitations, Denies dyspnea, Denies dyspnea on exertion and Denies orthopnea Respiratory Respiratory: Denies cough, Denies dyspnea, Denies dyspnea on exertion and Denies wheezing Gastrointestinal Gastrointestinal: Denies abdominal pain, Denies change in bowel habits, Denies diarrhea, Denies nausea and Denies vomiting Genitourinary Genitourinary: Denies hematuria, Denies flank pain, Denies urinary incontinence and Denies urinary urgency Musculoskeletal Musculoskeletal: Denies back pain, Reports joint swelling (Right great toe), Denies muscle weakness, Denies neck pain, Denies numbness (No worsening of peripheral neuropathy) and Denies tingling Integumentary/Breasts Skin/Breast: Denies pruritus, Denies erythema, Denies rash and Reports wounds (Right great toe) Neurologic Neurologic: Denies behavioral changes, Denies confusion, Denies dizziness, Denies frequent falls, Denies loss of vision, Denies numbness (No worsening of peripheral neuropathy), Denies tingling and Denies weakness Psychiatric Psychiatric: Denies behavioral changes and Denies confusion Endocrine Endocrine: Denies fatigue and Denies palpitations Allergic/Immunologic Allergic/Immunologic: Denies wheezing Patient History <Yosef Campos PA-C - Last Filed: 11/11/21 19:19> Medical History Acne (1970) Cervical somatic dysfunction Chicken pox (1961) Chronic bilateral low back pain without sciatica Colon polyps (2014) Coronary artery disease Cranial somatic dysfunction CTS (carpal tunnel syndrome) (1997) Depression (1977) Diabetes mellitus (2009) Foot pain (1955) Fractures (1973) Hemorrhoids (1974) History of hypothyroidism History of recurrent ear infection (1967) HPV (human papilloma virus) infection (2016) Hypertriglyceridemia IBS (irritable bowel syndrome) (1977) Lumbar region somatic dysfunction Measles (1962) Mumps (1959) Neck pain Non-Q wave non-ST elevation myocardial infarction (NSTEMI) Pelvic somatic dysfunction Recurrent oral herpes simplex Recurrent sinusitis (1959) Sacral region somatic dysfunction Segmental and somatic dysfunction of abdomen and other regions Thoracic region somatic dysfunction Tinnitus (1969) Uncontrolled type 2 diabetes mellitus Surgical History Anesthesia Status post colonoscopy Stented coronary artery Family History Mother Cancer Family/Other Stomach cancer Family/Other Breast cancer Social History household members: family Smoking Status: Former smoker Smoking Status: Former smoker alcohol intake frequency: 0-2 drinks per day Substance Use Type: does not use Exam <Yosef Campos PA-C - Last Filed: 11/11/21 19:19> Narrative Exam Narrative: GENERAL: 65 year old patient appears stated age. Well-developed patient, in no acute distress. HEAD: Atraumatic. Normocephalic. EYES: Pupils equal round and reactive. Extraocular motions intact. No scleral icterus. No injection or drainage. ENT: Nose without bleeding, purulent drainage. Throat without erythema, ton sillar hypertrophy or exudate. Airway patent. NECK: Trachea midline. Non tender CARDIOVASCULAR: Regular rate and rhythm without murmurs, gallops, or rubs. RESPIRATORY: Clear to auscultation. Breath sounds equal bilaterally. No wheezes, rales, or rhonchi. GASTROINTESTINAL: Abdomen soft, non-tender, nondistended. EXTREMITIES: No edema or joint tenderness. Swelling noted above the right great toe with erythema. Small superficial break in skin noted at the superior portion the right great toe. No significant warmth or fluctuance appreciated throughout the right great toe, no active drainage appreciated. BACK: Nontender without deformity or crepitance. No flank tenderness. NEURO: AOx3. SKIN: No rash or erythema of visible areas Initial Vital Signs Initial Vital Signs: Vital Signs Temperature 97.9 F 11/11/21 17:07 Pulse Rate 78 11/11/21 17:07 Respiratory Rate 22 11/11/21 17:07 Blood Pressure 175/88 H 11/11/21 17:07 Pulse Oximetry 98 11/11/21 17:07 <Jc Conley DO - Last Filed: 11/12/21 09:33> Initial Vital Signs Initial Vital Signs: Vital Signs Temperature 97.9 F 11/11/21 17:07 Pulse Rate 78 11/11/21 17:07 Respiratory Rate 22 11/11/21 17:07 Blood Pressure 175/88 H 11/11/21 17:07 Pulse Oximetry 98 11/11/21 17:07 Course <Yosef Campos PA-C - Last Filed: 11/11/21 19:19> Course Course Narrative: X-ray of right toes obtained. Orders Ordered: ED Orders 11/11/21 17:35 XR toe RT min 2V Stat Vital Signs Vital signs: Vital Signs - 8 hr 11/11/21 17:07 11/11/21 19:10 Temperature 97.9 F Pulse Rate 78 67 Respiratory Rate 22 14 Blood Pressure 175/88 H 155/74 H Pulse Oximetry 98 100 <DO Iliana Alcocer Last Filed: 11/12/21 09:33> Orders Ordered: ED Orders 11/11/21 17:35 XR toe RT min 2V Stat Vital Signs Vital signs: Vital Signs - 8 hr 11/11/21 17:07 11/11/21 19:10 Temperature 97.9 F Pulse Rate 78 67 Respiratory Rate 22 14 Blood Pressure 175/88 H 155/74 H Pulse Oximetry 98 100 MDM - Extremity (Nontraumatic) <BETI Moreau Last Filed: 11/11/21 19:19> Lab Data Labs: Point of Care Testing Glucose POC 238 Imaging Data Extremity x-ray #1: Radiologist's Impression: PROCEDURE:? XR TOE RT MIN 2V ? INDICATIONS:? Diabetic infection right great toe ? TECHNIQUE:? AP view of the foot; 2 views of the 1st toe(s) acquired.? ? COMPARISON:? None. ? FINDINGS:? ? Bones:? No acute, displaced fracture.? No cortical destruction to suggest osteomyelitis.? No suspicious bony lesions.? Bipartite medial hallux sesamoid. ? Soft tissues:? Vascular calcifications are seen.? ? IMPRESSION:? No significant abnormality. ? ? Dictated by: Ash Mccarty M.D. on 11/11/2021 at 18:34 ? ? Approved by: Ash Mccarty M.D. on 11/11/2021 at 18:36 ? MDM Narrative Medical decision making narrative: To consider paronychia verses fracture versus dislocation versus diabetic ulcer. Overall physical examination, history, and imaging are reassuring. Discussed results of x-ray with patient. At this time she feels comfortable being discharged home with strict return precautions discussed prior to discharge. <Jc Conley, DO - Last Filed: 11/12/21 09:33> Lab Data Labs: Point of Care Testing Glucose POC 238 Discharge Plan Departure Patient Disposition: Home Clinical Impression: Infection of toe Instructions: DI for Wound Infection Activity Restrictions/Additional Instructions: *You have been diagnosed with right great toe infection *What to do: *Please continue to take your regular medications as directed. [X] New medication prescriptions sent to your pharmacy: [facility] - Clindamycin [ ] New medication written as a paper prescription [ ] No new medications given *Please follow up with your primary care provider in 2-3 days, call for an appointment. Let them know you were seen in the Emergency Department and that we ask that you be seen in follow up. We will electronically transmit a record of today's note if your PCP is in our system *If you do not have a primary care provider please contact the [facility] Resource line at [phone]. They will ask some questions about your medical history and help get you set up with a doctor in the community. *Return to Emergency Department if you should have any new, worsening or concerning symptoms, such as fever greater than 101 F, shaking chills, worsening pain, persistent vomiting or other bothersome symptoms Prescriptions: New clindamycin HCl 300 mg capsule 300 mg PO BID 7 Days Qty: 14 0RF No Action biotin 5 mg capsule 5 mg PO DAILY 0RF metoprolol succinate 25 mg tablet extended release 24 hr 50 mg PO DAILY 0RF Jardiance 10 mg tablet 25 mg PO QAM 0RF cholecalciferol (vitamin D3) [Vitamin D3] 50 mcg (2,000 unit) Tablet 1 tab PO DAILY Qty: 0 0RF Probiotic 1 cap PO DAILY Qty: 0 0RF Label Comments: patient states does not take routinely but should. Dexamethasone 0.25 % cream See Rx Instructions .ROUTE .COMPLEX Qty: 60 1RF Rx Instructions: Apply to hands and scalp twice daily atorvastatin 80 mg tablet 80 mg PO QPM 0RF vitamin E 400 unit capsule 400 unit PO DAILY 0RF (DME) OneTouch Verio test strips strip See Dose Instructions .ROUTE .MEDSUPPLY Qty: 100 3RF Dose Instruction: As directed Rx Instructions: Use to test blood sugar daily Ozempic 1 mg/dose (2 mg/1.5 mL) pen injector 1 mg SUBCUT QWEEK Qty: 3 3RF acyclovir 5 % cream 1 applic topical 5XD 4 Days Qty: 5 1RF aspirin 81 mg tablet,chewable 81 mg PO QAM 0RF Label Comments: LOW VISION THERAPIST ONE T P D Referrals: Andrea Coto DO [Primary Care Provider] - <Jc Conley DO - Last Filed: 11/12/21 09:33> Cosign ED Attending Cosignature Attestation: I was immediately available in the department for consultation. This documentation has been reviewed and I agree with assessment and plan. Supervised by Jc Conley DO
--- NOTE | 2021-11-11 17:35 | DI.RAD.S_ITS ---
PROCEDURE: XR TOE RT MIN 2V INDICATIONS: Diabetic infection right great toe TECHNIQUE: AP view of the foot; 2 views of the 1st toe(s) acquired. COMPARISON: None. FINDINGS: Bones: No acute, displaced fracture. No cortical destruction to suggest osteomyelitis. No suspicious bony lesions. Bipartite medial hallux sesamoid. Soft tissues: Vascular calcifications are seen. IMPRESSION: No significant abnormality. Dictated by: Ash Mccarty M.D. on 11/11/2021 at 18:34 Approved by: Ash Mccarty M.D. on 11/11/2021 at 18:36
[2021-11-11 19:10] VITALS: BP 155/74; PULSE 67; RESP 14; O2SAT 100
== END 2021-11-11 19:11 | disposition home or self-care (01) ==
PROVIDERS: Emergency Provider Physician Assistant; PCP Family Medicine
DX: L08.9 Local infection of the skin and subcutaneous tissue, unspecified (principal); E11.42 Type 2 diabetes mellitus with diabetic polyneuropathy; Z79.84 Long term (current) use of oral hypoglycemic drugs; Z87.891 Personal history of nicotine dependence; Z88.0 Allergy status to penicillin; Z88.2 Allergy status to sulfonamides
CPT/HCPCS: 73660; 82962; 99281; 99283

== ENCOUNTER → 2021-12-15 14:15 | Outpatient (CLI) | payer OTHER, SELFPAY ==
[2019-07-09 07:33] VITALS: BMI 30.8
== END ==
PROVIDERS: PCP Family Medicine; Referring Provider Family Medicine; Visit Provider Family Medicine
DX: E11.40 Type 2 diabetes mellitus with diabetic neuropathy, unspecified (principal); M79.674 Pain in right toe(s); L84 Corns and callosities; R60.0 Localized edema
CPT/HCPCS: 93922; 99203; 99213

== ENCOUNTER 2022-09-07 11:50 | Emergency (ER) | payer MEDICARE, SELFPAY ==
[2019-07-09 07:33] VITALS: BMI 30.8
[2022-09-07 11:56] VITALS: BP 158/70; PULSE 80; RESP 15; TEMP 36.3; O2SAT 98; BMI 32.3
--- NOTE | 2022-09-07 13:16 | ED_ITS ---
HPI - Skin/Abscess/Foreign Bdy General Chief complaint: Skin/Abscess/Foreign Body Stated complaint: Lt. big toe infected Time Seen by Provider: 09/07/22 13:08 Source: patient Mode of arrival: Ambulatory Limitations: no limitations History of Present Illness HPI narrative: Patient is a 58-year-old female. Has a blister that has developed on her left great toe over the past several days/weeks. She is been seen 2 times at an outside facility. She states she had x-rays obtained. Was started on doxycycline and also Keflex. 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 She is been taking the antibiotics as directed. She stated that she could not get in to see wound care until next week. Related Data Home Medications Medication Instructions Recorded Confirmed cholecalciferol (vitamin D3) 50 1 tab PO DAILY ##0 10/19/17 01/26/22 mcg (2,000 unit) tablet (Vitamin D3) Probiotic 1 cap PO DAILY ##0 12/11/17 01/26/22 biotin 5 mg capsule 5 mg PO DAILY 03/07/19 01/26/22 atorvastatin 80 mg tablet 80 mg PO QPM 03/11/19 01/26/22 vitamin E 268 mg (400 unit) capsule 400 unit PO DAILY 03/11/19 01/26/22 aspirin 81 mg chewable tablet 81 mg PO QAM 07/09/19 01/26/22 metoprolol succinate 25 mg 50 mg PO DAILY 09/21/21 01/26/22 tablet,extended release 24 hr Previous Rx's Medication Instructions Recorded blood sugar diagnostic (OneTouch #100 ea 03/12/19 Verio test strips) Dexamethasone See Rx Instructions .Route 09/05/19 .COMPLEX eczema #60 grams acyclovir 5 % topical cream 1 applic topical 5XD 4 days #5 09/21/21 grams semaglutide 1 mg/dose (2 mg/1.5 1 mg (0.75 mL) SUBCUT QWEEK #3 mL 10/05/21 mL) subcutaneous pen injector (Ozemp[employer]) mupirocin 2 % topical ointment 1 applic topical TID #22 grams 12/01/21 Allergies Allergy/AdvReac Type Severity Reaction Status Date / Time Penicillins [PENICILLINS] Allergy Unknown Verified 09/07/22 11:56 Sulfa (Sulfonamide Allergy Unknown Verified 09/07/22 11:56 Antibiotics) [SULFA (SULFONAMIDE ANTIBIOTICS)] nickel AdvReac Intermediate Rash Verified 09/07/22 11:56 Review of Systems Review of Systems ROS Unobtainable: All systems reviewed & are unremarkable except as noted in HPI and below Patient History Medical History Acne (1970) Cervical somatic dysfunction Chicken pox (1961) Chronic bilateral low back pain without sciatica Colon polyps (2014) Coronary artery disease Cranial somatic dysfunction CTS (carpal tunnel syndrome) (1997) Depression (1977) Diabetes mellitus (2009) Foot pain (1955) Fractures (1973) Greater trochanteric bursitis of right hip Hemorrhoids (1974) History of hypothyroidism History of recurrent ear infection (1967) HPV (human papilloma virus) infection (2016) Hypertriglyceridemia IBS (irritable bowel syndrome) (1977) Injury of foot, left Lumbar region somatic dysfunction Measles (1962) Mumps (1959) Neck pain Non-Q wave non-ST elevation myocardial infarction (NSTEMI) Pelvic somatic dysfunction Recurrent oral herpes simplex Recurrent sinusitis (1959) Sacral region somatic dysfunction Segmental and somatic dysfunction of abdomen and other regions Somatic dysfunction of lower extremity Thoracic region somatic dysfunction Tinnitus (1969) Traumatic plantar fasciitis Uncontrolled type 2 diabetes mellitus Surgical History Anesthesia Status post colonoscopy Stented coronary artery Family History Mother Cancer Family/Other Stomach cancer Family/Other Breast cancer Social History household members: family Smoking Status: Former smoker Smoking Status: Former smoker alcohol intake frequency: holidays/special occasions only Substance Use Type: does not use Exam Initial Vital Signs Initial Vital Signs: Vital Signs Temperature 97.4 F L 09/07/22 11:56 Pulse Rate 80 09/07/22 11:56 Respiratory Rate 15 09/07/22 11:56 Blood Pressure 158/70 H 09/07/22 11:56 Pulse Oximetry 98 09/07/22 11:56 Oxygen Delivery Method 09/07/22 11:56 Const General: cooperative and comfortable HENMT Head: normal to inspection and normocephalic Cardio Pulses: dorsalis pedis present on the left Skin Other: Patient with a area of blister that has been unroofed on the end/bottom of the left great toe. There is a very small area of dark red in the center of this. There is some mild redness around the area. No drainage. Extrem Other: skin wound left great toe Course Orders Ordered: ED Orders 09/07/22 13:17 Wound Culture and Gram Stain Stat Vital Signs Vital signs: Vital Signs - 8 hr 09/07/22 11:56 Temperature 97.4 F L Pulse Rate 80 Respiratory Rate 15 Blood Pressure 158/70 H Pulse Oximetry 98 Oxygen Delivery Method Room Air MDM - Skin/Abscess/Foreign Bdy MDM Narrative Medical decision making narrative: Patient is on doxycycline and Keflex. A wound culture was obtained today per the patient's request although I informed her that this may be skewed because she is been on antibiotics. She will see wound care next week. She is had 2 x- rays of the area. There is no indication to change her antibiotics. No indication for admission to the hospital. No indication for surgical consultation. Discharge Plan Departure Patient Disposition: Home Clinical Impression: Diabetic ulcer of toe Instructions: DI for Diabetic Foot Ulcer Activity Restrictions/Additional Instructions: I do recommend that you continue to take the antibiotics that have been prescribed. A wound culture was obtained today. Keep your appointment with wound care next . Return to the emergency department for any new or worsening symptoms. Prescriptions: No Action mupirocin 2 % ointment 1 applic topical TID Qty: 22 0RF biotin 5 mg capsule 5 mg PO DAILY metoprolol succinate 25 mg tablet extended release 24 hr 50 mg PO DAILY cholecalciferol (vitamin D3) [Vitamin D3] 50 mcg (2,000 unit) Tablet 1 tab PO DAILY Qty: 0 Probiotic 1 cap PO DAILY Qty: 0 Label Comments: patient states does not take routinely but should. 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
== END 2022-09-07 13:32 | disposition home or self-care (01) ==
PROVIDERS: Emergency Provider Emergency Medicine; PCP Internal Medicine
DX: E11.621 Type 2 diabetes mellitus with foot ulcer (principal)
CPT/HCPCS: 87070; 87077; 87185; 87186; 87205; 99281; 99282

== ENCOUNTER → 2022-12-01 13:28 | Outpatient (CLI) | payer MEDICARE, MEDICAID, SELFPAY ==
[2019-07-09 07:33] VITALS: BMI 30.8
--- NOTE | 2022-12-01 | DI.ECHO.S_ITS ---
[facility] +---------+ : : [address] [place] : : : : [id number] : : : : Phone: [phone]+ Echocardiogram Report + + :Name: SERG INGRAM Study Date: 12/01/2022 Height: 66.5 in: :[facility] ReadingLocation: Weight: 200 lb : : Gender: Female BSA: 2.0 m2 : :: 1955 Age: 67 yrs BP: 148/94 mmHg: :Reason For Study: SYSTOLIC HEART FAILURE : :Ordering Physician: JOHANN, : :ELI Performed By: Alice Lubin : :Referring: ELI WILLS : + + Interpretation Summary Normal sinus rhythm. Normal LV size and wall thickness; there is basal inferior, mid-inferior and basal inferolateral akinesis. there is mid-inferolateral, distal inferior, basal inferoseptal and mid-inferoseptal hypokinesis. Other visualized segments demonstrate normal wall motion. Overall appearance is consistent with prior known LCX territory STEMI. EF is 40-45%. The right ventricle is normal in size and function. Normal chamber sizes. No significant valvular abnormalities. Pulmonary artery pressures cannot be estimated because of the lack of a measurable TR jet velocity but the IVC suggests a CVP of around 3 mmHg. Compared to prior study 06/21/2021 no changes have occurred. Procedure: A two-dimensional transthoracic echocardiogram with color flow and Doppler was performed. The study quality was technically adequate. Comparison is made with the echocardiogram of 06/21/2021. The patient was in sinus rhythm with heart rates between 69-75 bpm during the exam. Left Ventricle: The left ventricle is normal in size and wall thickness. The ejection fraction is estimated to be 40-45%. Right Ventricle: The right ventricle is normal in size and function. Atria: The left atrial size is normal. Right atrial size is normal. There is no Doppler evidence for an interatrial shunt. Mitral Valve: There is mild to moderate mitral annular calcification. The mitral valve leaflets appear mildly thickened, but open well. There is mild mitral regurgitation. Aortic Valve: The aortic valve is trileaflet. The aortic valve opens well. There is no aortic valve stenosis. There is mild aortic regurgitation. Tricuspid Valve: The tricuspid valve is normal in structure and function. There is mild tricuspid regurgitation. Pulmonary artery pressures cannot be estimated because of the lack of a measurable TR jet velocity. Pulmonic Valve: The pulmonic valve leaflets are thin and pliable; valve motion is normal. There is no pulmonic valvular regurgitation. Great Vessels: The aortic root is normal size. The dimensions of the ascending aorta are normal. The IVC is of normal diameter and collapses greater than 50% with a sniff. This suggests a low right atrial pressure of 3 mm Hg. Pericardium/ Pleura There is no pericardial effusion. There is no pleural effusion. MMode/2D Measurements & Calculations LVIDd: 5.5 cm LVOT diam: 2.1 cm LVIDs: 4.3 cm Ao root diam: 3.5 cm FS: 20.4 % asc Aorta Diam: 3.5 cm EPSS: 0.96 cm Ao Arch Diam (Prox Trans): 2.4 cm IVSd: 0.75 cm LVPWd: 0.77 cm LV santana. diameter/BSA (cm/m^2): 2.7 LV sys. diameter/BSA (cm/m^2): 2.2 LA A2 area: 19.9 cm2 RA long axis: 5.1 cm LA A4 area: 16.5 cm2 RA area: 12.3 cm2 LA length (vol): 4.8 cm RA vol: 25.2 ml LA vol: 58.2 ml RA : 12.6 ml/m2 LA vol index: 29.0 ml/m2 IVC diam: 1.7 cm RVD1 (basal): 3.0 cm RVD2 (mid): 2.5 cm TAPSE: 1.7 cm Doppler Measurements & Calculations Ao V2 max: 109.6 cm/sec LVOT Max Gino: 81.3 cm/sec Ao V2 mean: 78.2 cm/sec LV V1 max P.6 mmHg Ao max P.8 mmHg LV V1 VTI: 18.6 cm Ao mean P.7 mmHg CORINNA(I,D): 2.6 cm2 Ao V2 VTI: 23.8 cm CORINNA(V,D): 2.5 cm2 sev ratio: 0.78 CORINNA indexed to BSA (cm^2/m^2): 1.3 MV E max gino: 83.0 cm/sec PA V2 max: 86.6 cm/sec MV A max gino: 113.9 cm/sec PA V2 mean: 60.7 cm/sec MV E/A: 0.73 PA mean P.7 mmHg Med Peak E' Gino: 3.3 cm/sec PA pr(Accel): 15.6 mmHg E/E' med: 24.8 Lat Peak E' Gino: 6.8 cm/sec E/E' lat: 12.3 E/e' average: 18.5 MV dec time: 0.20 sec MVA(VTI): 2.1 cm2 MV V2 mean: 69.7 cm/sec SV(LVOT): 61.5 ml MV mean P.3 mmHg MV V2 VTI: 29.4 cm Electronically signed by: Eli Wills M.D. on Reading Physician:12/02/2022 09:02 PM
== END ==
PROVIDERS: PCP Family Medicine; Referring Provider Internal Medicine; Visit Provider Internal Medicine
DX: I50.21 Acute systolic (congestive) heart failure (principal); I08.3 Combined rheumatic disorders of mitral, aortic and tricuspid valves; E78.2 Mixed hyperlipidemia
CPT/HCPCS: 36415; 80053; 80061; 85025; 93306

== ENCOUNTER → 2022-12-01 14:28 | Outpatient (CLI) | payer MEDICARE, SELFPAY ==
[2019-07-09 07:33] VITALS: BMI 30.8
[2022-12-01 15:42] LABS: Add Manual Diff / Slide Review NO; Basophils Absolute Auto 0 /uL (0-100); Basophils Percent Auto 0.5 % (0-2); Eosinophils Absolute Auto 100 /uL (0-450); Eosinophils Percent Auto 1.3 % (2-4); Hematocrit 41.5 % (36-46); Hemoglobin 14.1 g/dL (12.0-16.0); Lymphocytes Absolute Auto 2100 /uL (1100-4500); Lymphocytes Percent Auto 33.7 % (25-40); Mean Corpuscular HGB Conc 33.9 % (30-36); Mean Corpuscular Hemoglobin 31.2 PG (26-34); Mean Corpuscular Volume 91.9 fL (80-100); Monocytes Absolute Auto 400 /uL (0-900); Monocytes Percent Auto 6.7 % (3-14); Neutrophils Absolute Auto 3600 /uL (1500-7000); Neutrophils Percent Auto 57.8 % (50-75); Platelet Count 245 X10^3/uL (150-400); Red Blood Cell Count 4.52 X10^6/uL (4.0-5.2); Red Cell Distribution Width 13.8 % (11.6-14.8); White Blood Cell Count 6.2 X10^3/uL (4.5-11.0)
[2022-12-01 17:23] LABS: Alanine Aminotransferase 27 IU/L (<35); Albumin 3.9 g/dL (3.5-5.0); Albumin Globulin Ratio 1.5 (1.0-2.8); Alkaline Phosphatase 71 U/L (38-126); Aspartate Aminotransferase 23 IU/L (14-36); Bilirubin Total 2.2 mg/dL (0.2-1.3); Blood Urea Nitrogen 18 mg/dL (7-17); Calcium 9.2 mg/dL (8.4-10.2); Carbon Dioxide 26 mmol/L (22-32); Chloride 105 mmol/L (98-107); Cholesterol 141 mg/dL (140-199); Estimated Glomerular Filt Rate > 60 mL/min (>60); Globulin 2.6 g/dL (1.7-4.1); Glucose 191 mg/dL (80-110); HDL Cholesterol 41 mg/dL (40-60); HEMOLYSIS < 15 (0-50); LDL Cholesterol Calculated 65 mg/dL (<100); Potassium 4.5 mmol/L (3.4-5.1); Sodium 139 mmol/L (137-145); Total Protein 6.5 g/dL (6.3-8.2); Triglycerides 175 mg/dL (35-150)
== END ==
PROVIDERS: PCP Family Medicine; Referring Provider Internal Medicine; Visit Provider Internal Medicine
DX: I50.21 Acute systolic (congestive) heart failure (principal); E78.2 Mixed hyperlipidemia
CPT/HCPCS: 36415; 80053; 80061; 85025

== ENCOUNTER → 2024-12-05 16:41 | Outpatient (CLI) | payer MEDICARE, MEDICAID, SELFPAY ==
[2024-06-25 13:57] VITALS: BMI 30.8
--- NOTE | 2024-12-05 17:12 | EKG_ITS ---
[address] [address] Test Date: 2024-12-05 Pat Name: Suma Campos Department: [facility] Room: Gender: Female Kardex Clerk: ERIK : 1955 Requested By: Order Number: [id number] Reading MD: Davy Clemens MD Measurements Intervals [place] Rate: 63 P: 62 CT: 186 QRS: 9 QRSD: 100 T: 96 QT: 414 QTc: 423 Interpretive Statements Normal sinus rhythm Cannot rule out Anterior infarct , age undetermined Electronically Signed On 12-07-2024 8:46:56 PST by Davy Clemens MD
[2024-12-05 17:15] LABS: Alanine Aminotransferase 30 IU/L (<35); Albumin 4.2 g/dL (3.5-5.0); Albumin Globulin Ratio 1.6 (1.0-2.8); Alkaline Phosphatase 82 U/L (38-126); Aspartate Aminotransferase 30 IU/L (14-36); BUN Creatinine Ratio 25.4 (6-22); Bilirubin Total 2.1 mg/dL (0.2-1.3); Blood Urea Nitrogen 18 mg/dL (7-17); Calcium 9.6 mg/dL (8.4-10.2); Carbon Dioxide 28 mmol/L (22-32); Chloride 103 mmol/L (98-107); Cholesterol 229 mg/dL (140-199); Estimated Glomerular Filt Rate > 60 mL/min (>60); Globulin 2.7 g/dL (1.7-4.1); Glucose 270 mg/dL (80-110); HDL Cholesterol 47 mg/dL (40-60); HEMOLYSIS < 15 (0-50); LDL Cholesterol Calculated 126 mg/dL (<100); Potassium 4.2 mmol/L (3.4-5.1); Sodium 136 mmol/L (137-145); Total Protein 6.9 g/dL (6.3-8.2); Triglycerides 279 mg/dL (35-150)
[2024-12-05 17:26] LABS: Hemoglobin A1C% w Est Avg Glu 10.8 % (4.0-6.0)
[2024-12-05 18:08] LABS: TSH w/ Reflex to FT4 1.37 uIU/mL (0.47-4.68)
== END ==
PROVIDERS: PCP Family Medicine; Referring Provider Family Medicine; Visit Provider Family Medicine
DX: E11.9 Type 2 diabetes mellitus without complications (principal); I10 Essential (primary) hypertension; E78.2 Mixed hyperlipidemia; Z86.39 Personal history of other endocrine, nutritional and metabolic disease; Z79.4 Long term (current) use of insulin
CPT/HCPCS: 36415; 80053; 80061; 83036; 84443; 93005

== ENCOUNTER → 2024-12-12 14:45 | Outpatient (CLI) | payer MEDICARE, MEDICAID, SELFPAY ==
[2024-06-25 13:57] VITALS: BMI 30.8
--- NOTE | 2024-12-12 15:06 | DIAB.MNT ---
Addendum entered by Ana Sainz 12/24/24 17:13: Pt called yesterday and LVM. Called her back today to discuss concerns. Taking 48u last night for HS insulin with FBG this morning of 116mg/dl. Improved FBG since our visit. Questions about how to take Metformin. Taking in the morning and at lunch. Has not heard anything from pharmacy about Trulicity. She will call them. Discussed low BG potential with adding GLP1 to currently regimen and the need to reduce insulin over time. Original Note: Initial Diabetes Medical Nutrition Therapy Assessment Name: Suma Campos Date: 12/12/24 Time: 3-410p Dx: Type II Diabetes Provider: Nnamdi Valverde Learning Style: Hands on Suma presents for initial DM visit. No previous DM education per report. Endorses PMH of DM x 15 years, without FH of Dm. Reports GDM x 2 (possibly 3) pregnancies, diet managed. Wants to know when to take Metformin, ie when spikes Not taking aspirin daily due to stomach upset. Seems the same with Metformin-- having upper GI discomfort at 500mg BID. Endorses h/o Jardiance with frequent UTI and yeast infections. Also h/o Semaglutide injection. Per notes, she was taking this [id number] but self d/c'd due to GI upset. Today she asks if she could take a different version of GLP1. Endorses some financial stress with needing a job and difficulty filling out applications and h/o work. SNAP recipient. States if she eats sugar her stomach feels swollen. Endorses retinopathy and neuropathy x several years. Burned feet with a heating pad. Still uses heating pad but with layers of blankets. Endorses sleepiness, which may be exacerbated by elevated BG. Diet Recall: 9a-12p: espresso and milk x 12 oz 3-4p: pasta with meat sauce x 3/4-1.5c OR cabbage, key and cheese with crispy onions snacks x 1-3 in a night: corn chips with cheese, sour cream and salsa OR mandarin oranges Water Anthropometrics: Ht: 66 Wt: 229# reported Physical Activity: None Self-Monitoring Blood Glucose: Using Dexcom G7. Reports indicate very high BG frequent. Always waking above 160mg/dl, usually over 180mg/dl. OFten >250mg/dl. Titrating her insulin up per rx. TIR: 78% very high 21% high 1% in range 0% low or very low avmg/dl GMI: NA std dev: 52mg/dl variance: 17.9% Diabetes Medications: 2000mg Metformin -- taking 500mg BID 38u Glargine (can titrate up to 50u) Pertinent Labs: HgA1c: 8% 08/2023 9% 08/2024 10.8% 11/2024 Past Medical History: (Last Updated 12/05/24 @ 16:12 by Marquis Coto DO) Acne (1969) Anxiety Cervical somatic dysfunction Chicken pox (1961) Chronic bilateral low back pain without sciatica Colon polyps (2014) Congestive heart failure Coronary artery disease Cranial somatic dysfunction CTS (carpal tunnel syndrome) (1997) Depression (1977) Diabetes mellitus (2009) Diabetic retinopathy associated with uncontrolled type 2 diabetes mellitus Foot pain (1955) Fractures (1973) Greater trochanteric bursitis of right hip Hemorrhoids (1974) History of hypothyroidism History of myocardial infarction History of recurrent ear infection (1967) HPV (human papilloma virus) infection (2016) HTN (hypertension) Hypertriglyceridemia IBS (irritable bowel syndrome) (1977) Injury of foot, left Lumbar region somatic dysfunction Measles (1962) Mumps (1959) Myocardial infarction 03/08/19 Neck pain Non-Q wave non-ST elevation myocardial infarction (NSTEMI) Orthopnea Pelvic somatic dysfunction Recurrent oral herpes simplex Recurrent sinusitis (1959) Sacral region somatic dysfunction Segmental and somatic dysfunction of abdomen and other regions Somatic dysfunction of lower extremity Thoracic region somatic dysfunction Tinnitus (1969) Traumatic plantar fasciitis Type 2 diabetes mellitus, with long-term current use of insulin Nutrition Rx: Plate Method Nutrition Diagnosis: - Nutrition and food related knowledge deficit r/t no previous MNT aeb pt report - Physical inactivity r/t stage of change and fatigue aeb pt report Intervention: This participant was very receptive. Provided appropriate educational handouts. Discussed the following topics: Completed intake assessment. Discussed barriers to care. Pathophysiology of T2DM in brief Types of insulins and action and delivery options DM med options: SGLT2i vs GLP1 and her SE BG review and trends Plate Method, impact of macronutrients on blood sugar, meal timing, carbohydrate counting, pairing macronutrients and spreading out carbohydrates for better blood glucose management Recommended servings for carbohydrates at meals and snacks Foot health: recommendation for avoiding soaking or heating pads for neuropathy Created SMART goals for patient self-care and success. Goals: Increase to 40u glargine tonight and continue to follow titration schedule until FBG are under 150mg/dl or you get to 50u- new Keep CHO to 1c at meals or less Pair CHO and protein Follow-up: DERRICK BLACKWELL follow-up in 2-[address] messaged PCP regarding potential for a different GLP1 per pt request. Otherwise, will continue to work on lifestyle and insulin titration. Ana Sainz RDN, [facility] Certified Diabetes Care and Senior Linux Systems Engineer P: [phone] Thank you for this referral
== END ==
PROVIDERS: PCP Family Medicine; Referring Provider Family Medicine
DX: E11.9 Type 2 diabetes mellitus without complications (principal); Z79.84 Long term (current) use of oral hypoglycemic drugs; Z79.4 Long term (current) use of insulin; Z71.3 Dietary counseling and surveillance
CPT/HCPCS: 97802

== ENCOUNTER → 2025-01-02 16:00 | Outpatient (CLI) | payer MEDICARE, MEDICAID, SELFPAY ==
[2024-06-25 13:57] VITALS: BMI 30.8
--- NOTE | 2025-02-24 08:37 | DIAB.FU ---
Addendum entered by Ana Sainz 02/24/25 08:45: Phone call 01/08/25: Not started GLP1, FBG today 188 with HS insulin 32u. D/c of Metformin. Plans to start Trulicity. Original Note: Follow-up Diabetes Education Assessment Name: Suma Campos Date: 01/02/25 Time: 4-445p Dx: Type II Diabetes Provider: Nnamdi Moise presents for virtual followup DM visit using Portal. Reports GDM x 2 (possibly 3) pregnancies, diet managed. Reports cereal intake last night and BG peaked at 300mg/dl PCP placed Rx for Trulicity Metformin causing diarrhea possibly, OR she is wondering if it is IBS? Was having loose stool before starting Metformin Did not take insulin last night, though states she is not sure why. Endorses inconsistently takin lately. Wants to try Trulicity, has rx, has not picked up yet. Plans to get tomorrow and will start Sunday Took Jardiance x 1 year and had repeat UTI and yeast infections per report Physical Activity: None Self-Monitoring Blood Glucose: Using Dexcom G7. Much improved time in range, though still below goal TIR: 15% very high 33% high 52% in range 0% low or very low avmg/dl GMI: NA std dev: mg/dl variance: % Last TIR: 78% very high 21% high 1% in range 0% low or very low avmg/dl GMI: NA std dev: 52mg/dl variance: 17.9% Diabetes Medications: 2000mg Metformin -- taking 500mg BID 32u Glargine (can titrate up to 50u) Pertinent Labs: HgA1c: 8% 08/2023 9% 08/2024 10.8% 11/2024 Past Medical History: (Last Updated 12/05/24 @ 16:12 by Marquis Coto DO) Acne (1970) Anxiety Cervical somatic dysfunction Chicken pox (1961) Chronic bilateral low back pain without sciatica Colon polyps (2014) Congestive heart failure Coronary artery disease Cranial somatic dysfunction CTS (carpal tunnel syndrome) (1997) Depression (1977) Diabetes mellitus (2009) Diabetic retinopathy associated with uncontrolled type 2 diabetes mellitus Foot pain (1955) Fractures (1973) Greater trochanteric bursitis of right hip Hemorrhoids (1974) History of hypothyroidism History of myocardial infarction History of recurrent ear infection (1967) HPV (human papilloma virus) infection (2017) HTN (hypertension) Hypertriglyceridemia IBS (irritable bowel syndrome) (1977) Injury of foot, left Lumbar region somatic dysfunction Measles (1962) Mumps (1959) Myocardial infarction 03/08/19 Neck pain Non-Q wave non-ST elevation myocardial infarction (NSTEMI) Orthopnea Pelvic somatic dysfunction Recurrent oral herpes simplex Recurrent sinusitis (1959) Sacral region somatic dysfunction Segmental and somatic dysfunction of abdomen and other regions Somatic dysfunction of lower extremity Thoracic region somatic dysfunction Tinnitus (1969) Traumatic plantar fasciitis Type 2 diabetes mellitus, with long-term current use of insulin Intervention: This participant was very receptive. Provided appropriate educational handouts. Discussed the following topics: DM medications Risk for lows, s/s and rule of 15 GLP1 SE and precautions Created SMART goals for patient self-care and success. Goals: Increase to 40u glargine tonight and continue to follow titration schedule until FBG are under 150mg/dl or you get to 50u- not met Keep CHO to 1c at meals or less - in progress Pair CHO and protein- not met senior safety support manager Trulicity- new Try taking HS insulin consistent, 20% less after starting GLP1- new Keep honey by bedside- new Write down FBG- new Follow-up: DERRICK BLACKWELL follow-up in 3 weeks. Will call for check in x 1 week. Ana Sainz RDN, [facility] Certified Diabetes Care and [employer] P: [phone] Thank you for this referral
== END ==
LOC: DIET 01-08 13:36
PROVIDERS: PCP Family Medicine; Referring Provider Family Medicine
DX: E11.9 Type 2 diabetes mellitus without complications (principal); Z79.4 Long term (current) use of insulin; Z71.3 Dietary counseling and surveillance; Z79.84 Long term (current) use of oral hypoglycemic drugs
CPT/HCPCS: G0108

== ENCOUNTER → 2025-03-05 14:25 | Outpatient (CLI) | payer MEDICARE, MEDICAID, SELFPAY ==
[2025-02-27 14:50] VITALS: BMI 30.8
[2025-03-05 14:51] LABS: Add Manual Diff / Slide Review NO; Basophils Absolute Auto 0 /uL (0-100); Basophils Percent Auto 0.7 % (0-2); Eosinophils Absolute Auto 100 /uL (0-450); Eosinophils Percent Auto 1.4 % (2-4); Hemoglobin 15.3 g/dL (12.0-16.0); Lymphocytes Absolute Auto 1700 /uL (1100-4500); Lymphocytes Percent Auto 29.8 % (25-40); Mean Corpuscular Hemoglobin 31.5 PG (26-34); Mean Corpuscular Volume 92.8 fL (80-100); Monocytes Absolute Auto 400 /uL (0-900); Monocytes Percent Auto 6.6 % (3-14); Neutrophils Absolute Auto 3500 /uL (1500-7000); Neutrophils Percent Auto 61.5 % (50-75); Platelet Count 240 X10^3/uL (150-400); Red Blood Cell Count 4.85 X10^6/uL (4.0-5.2); Red Cell Distribution Width 13.4 % (11.6-14.8); White Blood Cell Count 5.7 X10^3/uL (4.5-11.0)
[2025-03-05 15:03] LABS: Hemoglobin A1C% w Est Avg Glu 7.8 % (4.0-6.0)
[2025-03-05 15:30] LABS: Alanine Aminotransferase 25 IU/L (<35); Albumin Globulin Ratio 1.5 (1.0-2.8); Alkaline Phosphatase 74 U/L (38-126); Aspartate Aminotransferase 25 IU/L (14-36); Bilirubin Total 1.8 mg/dL (0.2-1.3); Blood Urea Nitrogen 17 mg/dL (7-17); Calcium 9.6 mg/dL (8.4-10.2); Carbon Dioxide 23 mmol/L (22-32); Chloride 107 mmol/L (98-107); Cholesterol 258 mg/dL (140-199); Estimated Glomerular Filt Rate > 60 mL/min (>60); Globulin 2.6 g/dL (1.7-4.1); Glucose 191 mg/dL (80-110); HDL Cholesterol 45 mg/dL (40-60); HEMOLYSIS < 15 (0-50); LDL Cholesterol Calculated 171 mg/dL (<100); Potassium 4.3 mmol/L (3.4-5.1); Sodium 137 mmol/L (137-145); Total Protein 6.6 g/dL (6.3-8.2); Triglycerides 209 mg/dL (35-150)
== END ==
PROVIDERS: PCP Family Medicine; Referring Provider Family Medicine; Visit Provider Family Medicine
DX: I11.0 Hypertensive heart disease with heart failure (principal); I50.9 Heart failure, unspecified; Z86.39 Personal history of other endocrine, nutritional and metabolic disease; R17 Unspecified jaundice; I25.2 Old myocardial infarction; E78.1 Pure hyperglyceridemia; E11.9 Type 2 diabetes mellitus without complications; E78.2 Mixed hyperlipidemia; Z79.4 Long term (current) use of insulin
CPT/HCPCS: 36415; 80053; 80061; 83036; 84443; 85025

== ENCOUNTER → 2025-03-12 14:59 | Outpatient (CLI) | payer MEDICARE, MEDICAID, SELFPAY ==
[2025-02-27 14:50] VITALS: BMI 30.8
--- NOTE | 2025-03-12 15:02 | DI.RAD.S_ITS ---
PROCEDURE: XR LUMBAR SPINE 2-3V INDICATIONS: low back pain TECHNIQUE: 3 views of the lumbar spine were acquired. COMPARISON: None. FINDINGS: Lumbar spine curvature and alignment: Grade 1 L4-5 spondylolisthesis due to degenerative facet disease noted. Very slight rightward curve lower thoracic and upper lumbar spine noted. Bones: There are no osseous abnormalities. Disc spaces: Mild degenerative disc disease T11-T12 through L1-2 and L4-5 and L5-S1. Moderate L4-5 and L5-S1 degenerative facet disease noted. Soft tissues: No soft tissue swelling, calcification or mass. IMPRESSION: Degeneration. Grade 1 L4-5 spondylolisthesis due to degenerative facet disease Dictated by: Davy Edwards M.D. on 03/13/2025 at 12:28 Approved by: Davy Edwards M.D. on 03/13/2025 at 12:29
== END ==
PROVIDERS: PCP Family Medicine; Referring Provider Family Medicine; Visit Provider Family Medicine
DX: M51.16 Intervertebral disc disorders with radiculopathy, lumbar region (principal); M51.17 Intervertebral disc disorders with radiculopathy, lumbosacral region; M47.26 Other spondylosis with radiculopathy, lumbar region; M47.27 Other spondylosis with radiculopathy, lumbosacral region; M43.16 Spondylolisthesis, lumbar region; G89.29 Other chronic pain
CPT/HCPCS: 72100